=== PATIENT | female | born 1950 | race Caucasian/White ===

== ENCOUNTER 2022-11-04 11:01 | Emergency (ER) | payer MEDICARE, SELFPAY ==
[2022-11-04 11:05] VITALS: BP 132/75; PULSE 89; RESP 18; TEMP 35.9; O2SAT 100; BMI 20.7
--- NOTE | 2022-11-04 11:07 | ED.FEMALEGU ---
HPI - Female Genitourinary General Chief complaint: Urogenital-Female <BARBRA Go Last Filed: 11/04/22 11:08> Stated complaint: UTI <BARBRA Go Last Filed: 11/04/22 11:08> Time Seen by Provider: 11/04/22 11:43 <BARBRA Go Last Filed: 11/04/22 11:08> Source: patient <BARBRA Balderrama Last Filed: 11/04/22 12:09> Mode of arrival: ambulatory <BARBRA Balderrama Last Filed: 11/04/22 12:09> Limitations: no limitations <BARBRA Balderrama Last Filed: 11/04/22 12:09> History of Present Illness HPI Narrative: 72-year-old female with a past medical history of recurrent UTIs her last UTI was probably 1 year ago and before that 10 years ago who is presenting with suprapubic abdominal discomfort with associated dysuria, urinary frequency / urgency over the past 2 days worse today. Denies any fevers, chills, dizziness, headaches, neck pain/ stiffness, trouble swallowing or breathing, chest pain or shortness of breath, radiation of the abdominal pain, flank pain, back pain, Hematuria, diarrhea constipation, abnormal vaginal discharge, black or bloody stools, rashes to the vaginal area, thoughts of STDs or any other symptoms complaints or concerns at this time. <BARBRA Balderrama Last Filed: 11/04/22 12:09> MD elicited complaint: dysuria and UTI <BARBRA Balderrama Last Filed: 11/04/22 12:09> Pertinent past history: recurrent UTIs <BARBRA Balderrama Last Filed: 11/04/22 12:09> Onset (ago): day(s) (2) <BARBRA Balderrama Last Filed: 11/04/22 12:09> Location of symptoms: suprapubic <BARBRA Balderrama Last Filed: 11/04/22 12:09> Severity: mild <BARBRA Balderrama Last Filed: 11/04/22 12:09> Female Urogenital Radiation: Non-Radiating <BARBRA Balderrama Last Filed: 11/04/22 12:09> Quality of pain: cramping and aching <BARBRA Balderrama Last Filed: 11/04/22 12:09> Consistency: intermittent <BARBRA Balderrama Last Filed: 11/04/22 12:09> Vaginal discharge: none <BARBRA Balderrama Last Filed: 11/04/22 12:09> Vaginal bleeding: none <BARBRA Balderrama Last Filed: 11/04/22 12:09> Urinary symptoms: Dysuria, Urgency, Frequency and Difficulty Urinating <BARBRA Balderrama Last Filed: 11/04/22 12:09> Exacerbating factors: urination <BARBRA Balderrama Last Filed: 11/04/22 12:09> Relieving factors: none <BARBRA Balderrama Last Filed: 11/04/22 12:09> Associated symptoms: denies other symptoms <BARBRA Balderrama Last Filed: 11/04/22 12:09> Treatment prior to arrival: none <BARBRA Balderrama Last Filed: 11/04/22 12:09> Sexual activity: No <BARBRA Balderrama Last Filed: 11/04/22 12:09> Patient : No <BARBRA Balderrama Last Filed: 11/04/22 12:09> Related Data Home medications: Previous Rx's Medication Instructions Recorded cefuroxime axetil 250 mg tablet 500 mg PO BID 7 days #28 tabs 11/04/22 phenazopyridine 100 mg tablet 100 mg PO TID PRN pain 6 doses #6 11/04/22 (Pyridium) tabs <BARBRA Go Last Filed: 11/04/22 11:08> Allergies/Adverse reactions: Allergies Allergy/AdvReac Type Severity Reaction Status Date / Time No Known Allergies Allergy Verified 11/04/22 11:08 <BARBRA Go Last Filed: 11/04/22 11:08> Review of Systems Review of Systems: Constitutional : No Weight loss, No Fever, No Chills, No Night Sweats, No Fatigue, No Malaise ENT/Mouth : No Hearing loss, No Ear Pain, No Nasal Congestion, No Sinus Pain, No Hoarseness, No sore throat, No Rhinorrhea, No Swallowing Difficulty Eyes: No Eye Pain, No Swelling, No Redness, No Foreign Body, No Discharge, No Vision Changes Cardiovascular : No Chest Pain, No SOB, No Dyspnea on Exertion, No Orthopnea, No Edema, No Palpitations Respiratory : No Cough, No Sputum, No Wheezing, No Smoke Exposure, No Dyspnea Gastrointestinal : No Nausea, No Vomiting, No Diarrhea, No Constipation, + suprapubic abdominal Pain, No Hematochezia, No Melena Genitourinary : + dysuria with increased urinary frequency/ urgency, no irregular bleeding, No Hematuria, No Urinary Incontinence, No Flank Pain, No Urinary Flow Changes, No Hesitancy Musculoskeletal : No joint pain, No Myalgias, No Joint Swelling Skin : No Skin Lesions, No rash Neuro : No Weakness, No Numbness, No Paresthesias, No Loss of Consciousness, No Dizziness, No Headache Psych : No Anxiety/Panic, No Depression, No SI/HI/AH/VH, No Social Issues, Heme/Lymph: No Bruising, No Bleeding,No Lymphadenopathy Endocrine : No Polyuria, No Polydipsia, No Temperature Intolerance <BARBRA Balderrama - Last Filed: 11/04/22 12:09> Yes all other systems are reviewed and are negative <BARBRA Balderrama - Last Filed: 11/04/22 12:09> [facility] Past Medical History Attestation statement: The following information was validated with the patient. <BARBRA Balderrama - Last Filed: 11/04/22 12:09> Source: old records reviewed and nursing notes reviewed <BARBRA Balderrama - Last Filed: 11/04/22 12:09> Social History Social History: Social History Smoked in Last 30 Days: No Advance Directives: Yes Advance Directives Information Provided: No Advance Directives on File: No Patient : No <BARBRA Go - Last Filed: 11/04/22 11:08> Physical Exam Vital Signs: Vital Signs: Last Vital Signs Temp 96.6 F L 11/04/22 11:05 Pulse 89 11/04/22 11:05 Resp 18 11/04/22 11:05 BP 132/75 11/04/22 11:05 Pulse Ox 100 11/04/22 11:05 O2 Del Method 11/04/22 11:05 BMI result Body Mass Index 20.7 <BARBRA Go - Last Filed: 11/04/22 11:08> Vital Signs: Last Vital Signs Temp 96.6 F L 11/04/22 11:05 Pulse 89 11/04/22 11:05 Resp 18 11/04/22 11:05 BP 132/75 11/04/22 11:05 Pulse Ox 100 11/04/22 11:05 O2 Del Method 11/04/22 11:05 BMI result Body Mass Index 20.7 vital signs have been reviewed as normal and appeared to be correct. Blood pressure normal. Heart rate normal. Respiration rate normal. Temperature normal. Oxygen saturation normal. <BARBRA Balderrama - Last Filed: 11/04/22 12:09> Appearance: Alert. Oriented X3. No acute distress. Head: Normal external exam. Normocephalic. Eyes: PERRLA. EOMI. Conjunctiva and sclera normal. Eyelids normal. ENT: Pharynx normal. Uvula midline. Moist mucous membranes. No trismus noted. No drooling noted. No muffled voice noted. Neck: Normal inspection. Neck supple. FROM. No adenopathy. No meningeal signs. CVS: Normal heart rate and rhythm. Heart sound normal. No murmurs noted. Pulses normal throughout. Respiratory: No respiratory distress. Painless inspiration. Breath sounds normal. No wheezes/rales/rhonchi noted. Chest nontender. No accessory muscle usage noted or decreased air movement noted. Abdomen: Soft and nontender. Nondistended. No guarding. No rigidity. Bowel sounds normal in all 4 quadrants. No distention noted. No organomegaly noted. No visible injury noted. No rebound tenderness. Negative Rovsing sign. Negative obturator's sign. Negative psoas sign. Negative Anders sign. Back: No CVA tenderness. Full range of motion noted. Skin: Skin warm and dry. Normal skin color. Normal skin turgor. No rashes/lesions/lacerations noted. Extremities: Extremities exhibit normal range of motion. Extremities nontender. Neuro: Oriented X 3. No motor deficit. No sensory deficit. Reflexes normal. Normal steady gait. CN's II-XII intact bilaterally? <BARBRA Balderrama - Last Filed: 11/04/22 12:09> Course Course Course Narrative: RME - 72 yo female with history of UTIs in the past presents for evaluation of UTI symptoms a couple days ago. No fever, chills, N/V/D, abdominal pain or back pain. Nontoxic appearing, afebrile in triage. UA ordered. <BARBRA Go - Last Filed: 11/04/22 11:08> Reevaluation(s) Reevaluation #1: UA positive for UTI. On exam patient does not have any abdominal tenderness, flank pain or CVA tenderness noted. She denies any rashes or lesions to the vaginal area no thoughts of STDs. Therefore no additional labs or imaging indicated. Not consistent with pyelonephritis/ kidney stones/ appendicitis/ diverticulitis or any intra-abdominal acute processes. Will DC home antibiotics and instructions return if any new or worsening symptoms to follow up with primary care provider. Patient understands agrees with this plan. <BARBRA Balderrama - Last Filed: 11/04/22 12:09> Time: 12:06 <BARBRA Balderrama - Last Filed: 11/04/22 12:09> Medical Decision Making Lab Data MDM Lab Attestation statement: I reviewed the patient's lab results. <BARBRA Balderrama - Last Filed: 11/04/22 12:09> Labs: Lab Results 11/04/22 Range/Units 11:36 Urine Color Yellow Urine Appearance Cloudy Urine pH 6.5 (5.0-9.0) Ur Specific [place] 1.020 (1.005-1.025) Urine Protein 30 (1+) H (Neg-Trace) mg/dL Urine Glucose (UA) Negative (Negative) mg/dL Urine Ketones Trace (Negative) mg/dL Urine Blood Large (3+) H (Negative) Urine Nitrite Negative (Negative) Ur Leukocyte Esterase Large (3+) H (Negative) Urine RBC >20 H (0-2) /HPF Urine WBC >50 H (0-5) /HPF Ur Squamous Epith Cells 0-2 (0-2) /HPF Urine Bacteria 2+ (None Seen) Hyaline Casts 3-5 (0-2) /LPF <BARBRA Go - Last Filed: 11/04/22 11:08> Lab Results 11/04/22 Range/Units 11:36 Urine Color Yellow Urine Appearance Cloudy Urine pH 6.5 (5.0-9.0) Ur Specific [place] 1.020 (1.005-1.025) Urine Protein 30 (1+) H (Neg-Trace) mg/dL Urine Glucose (UA) Negative (Negative) mg/dL Urine Ketones Trace (Negative) mg/dL Urine Blood Large (3+) H (Negative) Urine Nitrite Negative (Negative) Ur Leukocyte Esterase Large (3+) H (Negative) Urine RBC >20 H (0-2) /HPF Urine WBC >50 H (0-5) /HPF Ur Squamous Epith Cells 0-2 (0-2) /HPF Urine Bacteria 2+ (None Seen) Hyaline Casts 3-5 (0-2) /LPF <BARBRA Balderrama - Last Filed: 11/04/22 12:09> Discharge Plan Discharge Clinical Impression: Urinary tract infection <BARBRA Go - Last Filed: 11/04/22 11:08> Patient Disposition: Home, Self-Care <BARBRA Go Last Filed: 11/04/22 11:08> Instructions: Urinary Tract Infection in Women (ED) <BARBRA Go - Last Filed: 11/04/22 11:08> Prescriptions: New cefuroxime axetil 250 mg tablet 500 mg PO BID 7 Days Qty: 28 0RF phenazopyridine [Pyridium] 100 mg tablet 100 mg PO TID PRN (Reason: pain) Qty: 6 0RF <BARBRA Go - Last Filed: 11/04/22 11:08> Referrals: Physician,Nonstaff [Primary Care Provider] - 2 days ( Your PCP as needed) <BARBRA Go Last Filed: 11/04/22 11:08>
[2022-11-04 11:50] LABS: Appearance Urine Cloudy; Color Urine Yellow; Glucose Urine UA Negative (Negative); Leukocyte Esterase Urine Large (3+) (Negative); Nitrite Urine Negative (Negative); PH 6.5 (5.0-9.0); UMIC TRIGGER UACC YES; Urine Blood Large (3+) (Negative); Urine Ketones Trace mg/dL (Negative); Urine Protein 30 (1+) mg/dL (Neg-Trace)
[2022-11-04 11:55] LABS: Bacteria Urine 2+ (None Seen); RBC Urine >20 /HPF (0-2); Squamous Epithelial Cell Urine 0-2 /HPF (0-2); UACC Culture Trigger YES; WBC Urine >50 /HPF (0-5)
== END 2022-11-04 12:26 | disposition home or self-care (01) ==
PROVIDERS: Physician Assistant; Emergency Provider Emergency Medicine
DX: N39.0 Urinary tract infection, site not specified (principal); R30.0 Dysuria; R35.0 Frequency of micturition; Z79.899 Other long term (current) drug therapy
CPT/HCPCS: 81001; 87086; 99283; 99284

== ENCOUNTER 2023-03-17 10:06 | Emergency (ER) | payer MEDICARE, SELFPAY ==
--- NOTE | ~2023-03-17 | XR_ITS ---
EXAMINATION: XR CHEST CLINICAL INFORMATION: Cough COMPARISON: None available. TECHNIQUE: 2 views of the chest were obtained. FINDINGS: The cardiomediastinal silhouette is within normal limits. The lungs are well expanded. There is no focal consolidation, edema, or effusion. No pneumothorax. No acute osseous abnormality. Thoracic spine degeneration. XR/XR chest 2V IMPRESSION: No evidence of acute cardiopulmonary process.
[2023-03-17 10:25] VITALS: BP 135/64; PULSE 77; RESP 18; TEMP 36.2; O2SAT 98; BMI 21.9
[2023-03-17 11:09] LABS: IDNOW Serial# 6674DD1D; Strep A Nucleic Acid Negative (Negative)
[2023-03-17 11:27] LABS: Influenza A PCR NEGATIVE (Negative); Influenza B PCR NEGATIVE (Negative); Resp Syncy Virus RNA Qual PCR NEGATIVE (Negative); SARS COV2 PCR INHOUSE NEGATIVE (Negative)
--- NOTE | 2023-03-17 11:50 | PC.NURSE ---
Patient presents with a sore throat and cough for a few days. Patient states hx of acid reflux and she hasn't been taking full dose of medication recently and has been noticing more of a cough at night. Patient alert and orient and is otherwise well appearing at this time.
--- NOTE | 2023-03-17 12:38 | ED.GENADULT ---
HPI - General Adult General Chief complaint: General Medical Stated complaint: Cough/Sore throat Time Seen by Provider: 03/17/23 12:01 Source: patient, RN notes reviewed and old records reviewed Mode of arrival: ambulatory Limitations: no limitations History of Present Illness HPI narrative: 72 year old female with history of GERD, bronchitis, and tobacco use presenting to the ED complaining of a dry cough x3 wks followed by sore throat x1 wk and associated right ear pain. Reports pain with swallowing and reports white dots on the back of her throat. No difficulty eating/ drinking. Denies sick contacts. Denies difficulty swallowing, sputum production, nasal congestion, sinus pressure, SOB, chest pain, hearing changes/ loss, fever, chills, N/V. Onset (ago): week(s) Related Data Previous Rx's Medication Instructions Recorded cefuroxime axetil 250 mg tablet 500 mg PO BID 7 days #28 tabs 11/04/22 phenazopyridine 100 mg tablet 100 mg PO TID PRN pain 6 doses #6 11/04/22 (Pyridium) tabs amoxicillin 875 mg-potassium 1 tab PO BID 7 days #14 tabs 03/17/23 clavulanate 125 mg tablet benzonatate 100 mg capsule 100 mg PO TID PRN cough #14 caps 03/17/23 prednisone 20 mg tablet 40 mg PO DAILY 5 days #10 tabs 03/17/23 Allergies Allergy/AdvReac Type Severity Reaction Status Date / Time No Known Allergies Allergy Verified 03/17/23 10:35 Review of Systems Review of Systems: Constitutional: No Fever, No Chills ENT/Mouth: + Ear Pain, No Nasal Congestion, No Sinus Pain, No Hoarseness, + sore throat, No Rhinorrhea, No Swallowing Difficulty Cardiovascular: No Chest Pain, No SOB Respiratory: + Cough, No Sputum, No Wheezing Gastrointestinal: No Nausea, No Vomiting, No Diarrhea, No Constipation, No Abdominal pain Genitourinary: No Dysuria, No Urinary Frequency, No Hematuria Musculoskeletal: No joint pain, No Myalgias, No Joint Swelling Skin: No Skin Lesions, No rash Yes all other systems are reviewed and are negative Constitutional: Constitutional: Reports as per [facility] Past Medical History Attestation statement: The following information was validated with the patient. Source: old records reviewed Social History Social History Advance Directives: No Advance Directives Information Provided: Yes Physical Exam ED Vital Signs: Vital Signs - 24 hr 03/17/23 10:25 Temperature 97.1 F Pulse Rate 77 Respiratory Rate 18 Blood Pressure 135/64 Pulse Oximetry 98 Oxygen Delivery Method Room Air BMI result Body Mass Index 21.9 VSS, afebrile Const General: cooperative, healthy appearing, no acute distress, alert and awake Orientation/consciousness: patient oriented x3 Limitations: no limitations HENMT Other: + bilateral tonsilar exudates. No erythema or edema. Uvula midline. Head: Yes normal to inspection and Yes atraumatic Ears: hearing grossly normal bilaterally, external ears normal, TM's normal bilaterally, EAC's normal, mastoids normal and no periauricular adenopathy General nose exam: Normal external nose present Face and sinus: Yes normal facial exam Mouth: Normal oral and palatal mucosa present, oropharynx abnormals and moist mucous membranes Throat: Yes uvula midline, No uvula laterally displaced and No uvular edema Eyes General: appearance normal, both eyes and all related structures EOM: EOMs intact bilaterally Neck Neck: Yes normal visual inspection, Yes no lymphadenopathy and Yes no meningeal signs Resp Effort & Inspection: normal respiratory effort, able to speak in complete sentences and no respiratory distress Auscultation: clear to auscultation bilaterally, no crackles, no rales, no rhonchi and no wheezes Cardio Rate: regular rate Heart sounds: S1 normal heart sound present and S2 normal heart sound present GI Inspection: Yes normal to inspection Palpation (GI): Soft to palpation, nontender, no guarding and not rigid Skin Rashes: no rashes Wounds: no wounds Neuro General: patient oriented x3, tone normal and no meningeal signs Gait exam (Neuro): Normal gait present Extrem General: Yes normal to inspection Course Course Course Narrative: --1250: serology negative for influenza, RSV, strep, and COVID. > CXR ordered. 1403--XR chest 2V IMPRESSION: No evidence of acute cardiopulmonary process. Results discussed with patient including worrisome signs and symptoms and strict return precautions, and when to return to the emergency department. They verbalized understanding and feel safe for discharge at this time. Medical Decision Making Medical Decision Making [facility] Narrative: 72 year old female with history of GERD, bronchitis, and tobacco use presenting to the ED complaining of a dry cough x3 wks followed by sore throat x1 wk and associated right ear pain. Reports pain with swallowing and reports seeing white dots on the back of her throat. VSS, physical exam significant for bilateral tonsilar exudates, uvula midline. Concern for viral pharyngitis, strep throat, bronchitis vs COVID, influenza. Low clinical suspicion for DATA KEYER, ACS, PE or mastoiditis Plan: serology, CXR Please refer to course for remaining clinical decision making, interpretation of labs/imaging results, and discussions with consultants and/or family members. Differential Diagnosis Differential Diagnoses: The differential diagnosis associated with the presentation includes As above Lab Data MDM Lab Attestation statement: I reviewed the patient's lab results. Labs: Lab Results 03/17/23 03/17/23 Range/Units 10:33 10:33 Influenza Type A (PCR) NEGATIVE (Negative) Influenza Type B (PCR) NEGATIVE (Negative) RSV RNA Qual (PCR) NEGATIVE (Negative) SARS-CoV-2 RNA (RT-PCR) NEGATIVE (Negative) S. pyogenes GrpA JOSELINE Negative (Negative) Independent Interpretation I performed an independent interpretation of an: Plain X-Ray Radiology Impression Discussion of test interpretation with radiology: I have reviewed the radiologist's reading. External Record Review External record reviewed: Inpatient record, Office record, Outpatient record, Prior outpatient labs, Prior outpatient radiology, Primary care record and Outside ED record Tests considered The following testing was considered but not selected: As above Discharge Plan Discharge Clinical Impression: Pharyngitis, Bronchitis Patient Disposition: Home, Self-Care Instructions: Pharyngitis (ED), Acute Bronchitis (ED) Additional Instructions: You tested negative for COVID, flu, RSV, and strep throat, however clinically appears to have strep Augmentin is an antibiotic please take as prescribed Your x-rays unremarkable however you have bronchitis, prednisone as a steroid please take as prescribed Please stay hydrated, continue home medications, follow up with her doctor Symptoms persist or worsen return to the ED Prescriptions: New prednisone 20 mg tablet 40 mg PO DAILY 5 Days Qty: 10 0RF amoxicillin-pot clavulanate 875-125 mg tablet 1 tab PO BID 7 Days Qty: 14 0RF benzonatate 100 mg capsule 100 mg PO TID PRN (Reason: cough) Qty: 14 0RF No Action cefuroxime axetil 250 mg tablet 500 mg PO BID 7 Days Qty: 28 0RF phenazopyridine [Pyridium] 100 mg tablet 100 mg PO TID PRN (Reason: pain) Qty: 6 0RF Referrals: Physician,Unknown J [Primary Care Provider] - 5 days Interventions: ED Discharge Assessment Last Done: 03/17/23 14:27 Discharge Date/Time: 03/17/23 14:28
== END 2023-03-17 14:28 | disposition home or self-care (01) ==
PROVIDERS: Emergency Provider Emergency Medicine
DX: J02.9 Acute pharyngitis, unspecified (principal); J40 Bronchitis, not specified as acute or chronic; Z20.822 Contact with and (suspected) exposure to COVID-19; Z20.828 Contact with and (suspected) exposure to other viral communicable diseases
CPT/HCPCS: 0241U; 71046; 87651; 99282; 99283

== ENCOUNTER 2023-04-06 08:49 | Emergency (ER) | payer MEDICARE, SELFPAY ==
[2023-04-06 09:10] VITALS: BP 135/81; PULSE 84; TEMP 35.6; O2SAT 98; BMI 21.9
[2023-04-06 10:03] LABS: IDNOW Serial# 08D9AD1C; Strep A Nucleic Acid Negative (Negative)
--- NOTE | 2023-04-06 10:03 | ED.GENADULT ---
HPI - General Adult General Chief complaint: General Medical Stated complaint: Sore throat Time Seen by Provider: 04/06/23 10:03 Source: patient Mode of arrival: ambulatory Limitations: no limitations History of Present Illness HPI narrative: Patient is a 72 year old assigned female at with no reported medical history presenting to the emergency department today with a sore throat. Patient states that she has been battling this sore throat intermittently since February. Patient states that she sees white spots in her throat and it fluctuates in intensity. Patient denies any dizziness, lightheadedness, abdominal pain, nausea, vomiting, fever, chills, blurry vision, double vision, loss of vision, chest pain, difficulty breathing, shortness of breath, back pain, night sweats, pain with urination, increased urinary frequency, increased urinary urgency, blood in her urine or stool, syncope or a near syncopal episode, recent trauma or falls, bowel incontinence, bladder incontinence, bowel retention, bladder retention, or any other complaints at this time. Onset (ago): week(s) (3) Radiation: non-radiation Severity: mild Severity scale (1-10): 3 Quality: aching Pain Consistency: intermittent Relieving factors: none Exacerbating factors: none Associated symptoms: denies other symptoms Treatments prior to arrival: none Related Data Previous Rx's Medication Instructions Recorded cefuroxime axetil 250 mg tablet 500 mg PO BID 7 days #28 tabs 11/04/22 phenazopyridine 100 mg tablet 100 mg PO TID PRN pain 6 doses #6 11/04/22 (Pyridium) tabs amoxicillin 875 mg-potassium 1 tab PO BID 7 days #14 tabs 03/17/23 clavulanate 125 mg tablet benzonatate 100 mg capsule 100 mg PO TID PRN cough #14 caps 03/17/23 prednisone 20 mg tablet 40 mg PO DAILY 5 days #10 tabs 03/17/23 penicillin V potassium 500 mg 500 mg PO BID 10 days #20 tabs 04/06/23 tablet Allergies Allergy/AdvReac Type Severity Reaction Status Date / Time No Known Allergies Allergy Verified 03/17/23 10:35 Review of Systems Constitutional: Constitutional: Reports no additional constitutional complaints, Denies chills, Denies fever(s) and Denies night sweats Eyes: Eyes: Reports no additional eye complaints, Denies blurry vision, Denies change in vision, Denies diplopia, Denies eye discharge, Denies loss of vision and Denies eye pain ENT: Denies dizziness and Reports sore throat Cardiovascular: Cardiovascular: Reports no additional cardiovascular complaints, Denies chest pain, Denies lightheadedness, Denies Loss of Consciousness and Denies dyspnea Respiratory: Respiratory: Reports no additional respiratory complaints and Denies dyspnea Gastrointestinal: Gastrointestinal: Reports no additional gastrointestinal complaints, Denies abdominal pain, Denies melena, Denies hematochezia, Denies change in bowel habits and Denies change in stool character Genitourinary: Genitourinary: Denies hematuria, Denies urinary frequency, Denies dysuria, Denies urinary incontinence, Denies urinary hesitancy and Denies urinary urgency Musculoskeletal: Musculoskeletal: Reports no additional musculoskeletal complaints, Denies numbness and Denies tingling Neurologic: Denies dizziness, Denies loss of vision, Denies numbness and Denies tingling Psychiatric: Psychiatric: Reports no additional psychiatric complaints Endocrine: Endocrine: Reports no additional endocrine complaints Hematologic/Lymphatic: Hematologic/Lymphatic: Reports no additional hematologic/lymphatic complaints Allergic/Immunologic: Allergic/Immunologic: Reports no additional allergic/immunologic complaints [facility] Past Medical History Attestation statement: The following information was validated with the patient. Source: old records reviewed and nursing notes reviewed Social History Social History Advance Directives: No Advance Directives Information Provided: Yes Physical Exam ED Vital Signs: Vital Signs - 24 hr 04/06/23 09:10 Temperature 96.1 F L Pulse Rate 84 Blood Pressure 135/81 Pulse Oximetry 98 Oxygen Delivery Method Room Air BMI result Body Mass Index 21.9 Const General: cooperative, no acute distress, alert and awake Nutritional Appearance: well nourished Orientation/consciousness: patient oriented x3 Limitations: no limitations HENMT Head: Yes normal to inspection and Yes atraumatic Ears: hearing grossly normal bilaterally and external ears normal General nose exam: Normal external nose present, no nasal discharge noted and no epistaxis Face and sinus: Yes normal facial exam, No abrasion and No laceration Mouth: Normal oral and palatal mucosa present, no drooling and no muffled voice Throat: Yes posterior oropharynx abnormal (erythema and exudates) Eyes General: appearance normal, both eyes and all related structures Periorbital: periorbital findings normal Eyelids: Yes eyelids normal Conjunctivae: conjunctivae normal Pupils: Equal, round and reactive pupils present EOM: EOMs intact bilaterally Neck Neck: Yes normal visual inspection, Yes full ROM and Yes no lymphadenopathy Chest Chest palpation & inspection: normal inspection of the chest Resp Effort & Inspection: normal respiratory effort and able to speak in complete sentences GI Inspection: Yes normal to inspection Neuro General: patient oriented x3 and moves all extremities Cranial nerves: Yes Equal, round and reactive pupils present Cognition (Neuro): normal cognition Motor exam (neuro): 5/5 motor strength present throughout Sensory Exam: Normal double simultaneous stimulation for sensation Coordination: [id number] test normal Extrem General: Yes normal to inspection, Yes full ROM and Yes capillary refill normal Psych Appearance: grossly normal Mental Status: mental status grossly normal Affect: normal affect Attitude: cooperative Thought process: Normal thought process present Thought content: Normal thought content present Insight: Good insight present (Psych) Medical Decision Making Medical Decision Making MDM Narrative: Patient is a 72 year old assigned female at with no reported medical history presenting to the emergency department today with a sore throat. Patient's physical exam showed a posterior oropharynx with erythema and exudates. Patient's COVID-19, influenza, and strep swabs were all negative. I explained my physical exam findings as well as all test results to the patient. I answered all questions asked by the patient. I stressed the importance of the patient taking her medication as prescribed. I stressed the importance of the patient following up with her primary care provider and given the length of the complaint and it's intermittent frequency, an ENT specialist. I stressed the importance of the patient returning to the emergency department immediately if her symptoms were to worsen or if she were to develop any dizziness, shortness of breath, difficulty breathing, chest pain, blurry vision, loss of vision, nausea, vomiting, abdominal pain, fever, chills, back pain, or any other complaints. Patient verbalized agreement and understanding with this treatment plan and discharge. Differential Diagnosis Differential Diagnoses: The differential diagnosis associated with the presentation includes pharyngitis strep pharyngitis allergic pharyngitis viral illness chronic sore throat influenza COVID-19 Lab Data [facility] Lab Attestation statement: I reviewed the patient's lab results. My interpretation of these studies and their corresponding values is that they are grossly normal. Labs: Lab Results 04/06/23 04/06/23 04/06/23 Range/Units 09:46 09:46 09:46 COVID-19 (SHEREEN) Negative (Negative) COVID-19 Clin Com See Note Influenza Type A (JOSELINE) Negative (Negative) Influenza Type B (JOSELINE) Negative (Negative) Influenza A & B Note See Note S. pyogenes GrpA JOSELINE Negative (Negative) Prescription Management I considered prescription management with: Antibiotic (patient prescribed antibiotics) Discharge Plan Discharge Clinical Impression: Pharyngitis Patient Disposition: Home, Self-Care Instructions: Pharyngitis (ED) Additional Instructions: Follow up with your primary care provider and an ENT. Return to the emergency department immediately if your symptoms worsen or if you develop any dizziness, shortness of breath, difficulty breathing, chest pain, blurry vision, loss of vision, nausea, vomiting, abdominal pain, fever, chills, back pain, or any other complaints. Prescriptions: New penicillin V potassium 500 mg tablet 500 mg PO BID 10 Days Qty: 20 0RF No Action cefuroxime axetil 250 mg tablet 500 mg PO BID 7 Days Qty: 28 0RF phenazopyridine [Pyridium] 100 mg tablet 100 mg PO TID PRN (Reason: pain) Qty: 6 0RF prednisone 20 mg tablet 40 mg PO DAILY 5 Days Qty: 10 0RF amoxicillin-pot clavulanate 875-125 mg tablet 1 tab PO BID 7 Days Qty: 14 0RF benzonatate 100 mg capsule 100 mg PO TID PRN (Reason: cough) Qty: 14 0RF [place] [facility] [place]] (Call to establish and follow up with a primary care provider. If you already have a primary care provider, please follow up with them.) [facility] [place] Group[place] (Call to establish and follow up with a primary care provider. If you already have a primary care provider, please follow up with them.) [facility] [place] [place]Provider Group] (Call to establish and follow up with a primary care provider. If you already have a primary care provider, please follow up with them.) Jens Elena [Physician] - (Call to establish and follow up with an ENT specialist.) Interventions: ED Discharge Assessment Last Done: 04/06/23 10:55 Discharge Date/Time: 04/06/23 10:45 Print Language: Bulgarian
[2023-04-06 10:07] LABS: IDNOW Serial# BCCEAD1C
[2023-04-06 10:08] LABS: COVID-19 Test Negative (Negative); IDNOW Serial# 9DB6401D; Influenza A Negative (Negative); Influenza B2 Negative (Negative)
== END 2023-04-06 10:45 | disposition home or self-care (01) ==
PROVIDERS: Physician Assistant Medical; Emergency Provider Emergency Medicine
DX: J02.9 Acute pharyngitis, unspecified (principal); Z20.822 Contact with and (suspected) exposure to COVID-19
CPT/HCPCS: 87502; 87635; 87651; 99283

== ENCOUNTER 2023-04-22 12:02 | Emergency (ER) | payer MEDICARE, SELFPAY ==
--- NOTE | ~2023-04-22 | CT_ITS ---
EXAMINATION: CT SOFT TISSUE NECK WITH CONTRAST CLINICAL INFORMATION: Dysphagia, throat pain COMPARISON: None. TECHNIQUE: Following the administration of 60 mL of Omnipaque 350 intravenous contrast, helical imaging was performed in the axial plane with generation of coronal and sagittal reformatted images. This CT examination was performed using dose optimization techniques as appropriate, variously including the following: *Automated exposure control. *Adjustment of mA and/or kV according to patient size (this includes techniques or standardized protocols for targeted exams where dose is matched to indication/reason for exam; i.e. extremities or head). *Use of iterative reconstruction technique. DLP: 456 mGy-cm. FINDINGS: Nasopharynx/skull base: The fat planes of the skull base and soft tissues of the nasopharynx are unremarkable. The paranasal sinuses are well aerated. Small right mastoid fluid. The temporomandibular joints are normal. Suprahyoid neck: The oropharynx, oral cavity, and bilateral salivary gland tissues are unremarkable. Infrahyoid neck: The hypopharynx and larynx are unremarkable. No aerodigestive tract mass. Thyroid: The thyroid gland is normal. Lymph nodes: There is no cervical chain lymphadenopathy. Lung apices: Mild biapical pulmonary scarring. Vascular structures: There is calcified atherosclerotic disease involving the bilateral carotid bifurcations, right greater than left without evidence of high-grade stenosis. Osseous structures: The osseous structures are intact without suspicious focal lesion. Moderate multilevel cervical spondylosis. Evaluation of the central spinal canal patency is limited in the absence of intrathecal contrast with suggestion of moderate to severe stenosis at C5-C6 related to posterior disc osteophyte complex. Fusion of the right C2-C3 facet joint. Other: The imaged portions of the brain parenchyma are unremarkable. CT/CT soft tissue neck w IV con IMPRESSION: No acute soft tissue abnormality in the neck.
[2023-04-22 12:28] VITALS: BP 133/80; PULSE 77; RESP 16; TEMP 35.9; O2SAT 95; BMI 22.1
--- NOTE | 2023-04-22 12:28 | ED.GENADULT ---
HPI - General Adult General Chief complaint: General Medical Stated complaint: Throat issues -third visit Time Seen by Provider: 04/22/23 13:51 Source: patient and old records reviewed Mode of arrival: ambulatory Limitations: no limitations History of Present Illness HPI narrative: 72-year-old female with no significant medical history, former smoker, presents to the ER for evaluation of throat pain, foreign body sensation. She states she has been here twice in the past for sore throat and throat pain. Her symptoms have been progressing since February. She was treated with 2 courses of antibiotics although her cultures were negative. She states her symptoms have been progressing. She states she now feels like something is stuck in her throat. She has choked in vomited a couple of times when lying flat. She has been able to tolerate liquids and yogurt best. She has an appointment with ENT but not until May. MD complaint: throat pain, FB sensation Onset (ago): month(s) Location: mouth and neck Radiation: other (ears) Severity: moderate Pain Consistency: intermittent Relieving factors: none Exacerbating factors: eating Associated symptoms: nausea/vomiting Treatments prior to arrival: none Related Data Previous Rx's Medication Instructions Recorded cefuroxime axetil 250 mg tablet 500 mg PO BID 7 days #28 tabs 11/04/22 phenazopyridine 100 mg tablet 100 mg PO TID PRN pain 6 doses #6 11/04/22 (Pyridium) tabs amoxicillin 875 mg-potassium 1 tab PO BID 7 days #14 tabs 03/17/23 clavulanate 125 mg tablet benzonatate 100 mg capsule 100 mg PO TID PRN cough #14 caps 03/17/23 prednisone 20 mg tablet 40 mg PO DAILY 5 days #10 tabs 03/17/23 penicillin V potassium 500 mg 500 mg PO BID 10 days #20 tabs 04/06/23 tablet Allergies Allergy/AdvReac Type Severity Reaction Status Date / Time No Known Allergies Allergy Verified 04/22/23 12:28 Review of Systems Review of Systems: Yes all other systems are reviewed and are negative [facility] Social History Social History Advance Directives: Yes Advance Directives Information Provided: No Advance Directives on File: No Physical Exam ED Vital Signs: Vital Signs - 24 hr 04/22/23 12:28 04/22/23 13:56 04/22/23 16:10 Temperature 96.6 F L 98.2 F Pulse Rate 77 66 64 Respiratory Rate 16 16 18 Blood Pressure 133/80 141/75 H 142/95 H Pulse Oximetry 95 98 98 Oxygen Delivery Method Room Air Room Air Room Air BMI result Body Mass Index 22.1 Appearance: Alert. Oriented X3. No acute distress. Head: normocephalic, atraumatic. Eyes: Pupils equal, round and reactive to light. ENT: Pharynx normal. No tonsillar swelling or exudate. Small white cyst like lesions of the posterior oropharynx. normal voice. handling secretions normally Neck: Normal inspection. Neck supple. No apprecaited swelling or palpable lymphadenpathy. Tender below the level of the thyroid, no skin changes. CVS: Normal heart rate and rhythm. Pulses normal. Respiratory: No respiratory distress. Breath sounds normal. Abdomen: Soft and nontender. +BS x4 Skin: Skin warm and dry. Normal skin color. Normal skin turgor. No rashes. Extremities: No lower extremity edema. No joint swelling. Neuro/psych: Oriented X 3. No motor deficit. No sensory deficit. CN II-XII intact. Normal speech and cognition. Course Course Course Narrative: This is an RME: Additional HPI, ROS, PE not included below will be deferred to primary provider. Patient is a 72-year-old female presenting with ongoing sore throat, now complaining of foreign body sensation to throat for past several days. Patient states she made an appointment with ENT but the appointment is not until 05/28. States she completed full course of PCN VK as prescribed here on 04/06. Patient is speaking easily in full sentences. Denies fevers. Reports has only been able to eat yogurts. States when I swallow it feels like something is in there. Reevaluation(s) Reevaluation #1: Patient's CT unremarkable. Patient does have follow-up with ear nose and throat, I did give her Dr. Ag information , advised her to return with new or worsening symptoms. Did encourage a soft diet, liquids. Patient tolerating p.o. here in the department, liquids and yogurt. Educated patient on diagnosis and treatment plan, answered all question, patient verbalizes understanding. At this time patient will be discharged home, advised to return with new or worsening symptoms. Educated on worrisome signs and symptoms and when to return. At this time I feel comfortable discharge home. Time: 16:52 Medications Administered Discontinued Medications Generic Name Dose Route Start Last Admin Trade Name Ariel PRN Reason Stop Dose Admin Iohexol 60 ml 04/22/23 15:34 04/22/23 15:34 Iohexol 350 Mg/Ml 100 Ml Infus..Btl IV 04/22/23 15:35 60 ml ONCE ONE Administration Medical Decision Making Medical Decision Making [facility] Narrative: 72-year-old female presenting to the ER for evaluation of 2 and half months of progressive sore throat and now dysphagia. Seen here twice for similar issues. Completed 2 courses of antibiotics with no improvement. Does not seem to be infectious. She has no visible external swelling in her airway is intact. She is breathing with ease. She does have ENT follow-up in a month. Given her recurrence presentation and worsening symptoms a CT scan of her neck was performed and is pending at this time. Signed out to Violeta Colbert who will follow-up CT read Differential Diagnosis Differential Diagnoses: The differential diagnosis associated with the presentation includes Laryngeal cancer, dysphagia, Schatzki's ring, esophageal dysmotility, impacted foreign body Lab Data [facility] Lab Attestation statement: I reviewed the patient's lab results. Normal CBC, mild hyponatremia 04/22/23 12:54 04/22/23 12:54 Labs: Lab Results 04/22/23 04/22/23 04/22/23 Range/Units 12:48 12:52 12:54 WBC 8.5 (4.8-10.8) X10*3/uL RBC 4.56 (4.20-5.50) X10*6/uL Hgb 13.8 (12.0-16.0) g/dl Hct 40.1 (37.0-47.0) % MCV 87.9 (80.0-98.0) fL MCH 30.3 (27.0-33.0) pg MCHC 34.4 (31.0-35.0) g/dl RDW 11.7 (11.0-16.0) % Plt Count 277 (160-400) X10*3/uL MPV 8.9 L (9.4-12.3) fL Immature Gran % (Auto) 0.2 (0.0-0.4) % Neut % (Auto) 75.2 H (45-73) % Lymph % (Auto) 17.7 L (20-40) % [place] % (Auto) 5.9 (2-11) % Eos % (Auto) 0.9 (0-4) % Baso % (Auto) 0.1 (0-2) % Lymph # (Auto) 1.5 (1.2-4.9) X10*3/uL [place] # (Auto) 0.5 (0.1-1.2) X10*3/uL Eos # (Auto) 0.1 (0.0-0.4) X10*3/uL Baso # (Auto) 0.0 (0.0-0.2) X10*3/uL Abs Immat Gran (auto) 0.02 (0.00-0.03) X10*3/uL Absolute Neuts (auto) 6.4 (2.0-8.3) x10*3/uL Absolute Nucleated RBC 0.000 (0.0-0.012) X10*3/uL Nucleated RBC % (auto) 0.0 (0.0-0.2) /100WBC Sodium (135-145) mmol/L Potassium (3.3-5.1) mmol/L Chloride (96-108) mmol/L Carbon Dioxide (22-29) mmol/L Anion Gap (12-20) BUN (9-16) mg/dL Creatinine (0.5-1.4) mg/dL Estim Creat Clear Calc Estimated GFR Random Glucose (60-115) mg/dL Calcium (8.4-10.2) mg/dL Influenza Type A (PCR) NEGATIVE (Negative) Influenza Type B (PCR) NEGATIVE (Negative) RSV RNA Qual (PCR) NEGATIVE (Negative) SARS-CoV-2 RNA (RT-PCR) NEGATIVE (Negative) S. pyogenes GrpA JOSELINE Negative (Negative) 04/22/23 Range/Units 12:54 WBC (4.8-10.8) X10*3/uL RBC (4.20-5.50) X10*6/uL Hgb (12.0-16.0) g/dl Hct (37.0-47.0) % MCV (80.0-98.0) fL MCH (27.0-33.0) pg MCHC (31.0-35.0) g/dl RDW (11.0-16.0) % Plt Count (160-400) X10*3/uL MPV (9.4-12.3) fL Immature Gran % (Auto) (0.0-0.4) % Neut % (Auto) (45-73) % Lymph % (Auto) (20-40) % [place] % (Auto) (2-11) % Eos % (Auto) (0-4) % Baso % (Auto) (0-2) % Lymph # (Auto) (1.2-4.9) X10*3/uL [place] # (Auto) (0.1-1.2) X10*3/uL Eos # (Auto) (0.0-0.4) X10*3/uL Baso # (Auto) (0.0-0.2) X10*3/uL Abs Immat Gran (auto) (0.00-0.03) X10*3/uL Absolute Neuts (auto) (2.0-8.3) x10*3/uL Absolute Nucleated RBC (0.0-0.012) X10*3/uL Nucleated RBC % (auto) (0.0-0.2) /100WBC Sodium 133 L (135-145) mmol/L Potassium 4.1 (3.3-5.1) mmol/L Chloride 99 (96-108) mmol/L Carbon Dioxide 26 (22-29) mmol/L Anion Gap 12 (12-20) BUN 17 H (9-16) mg/dL Creatinine 0.72 (0.5-1.4) mg/dL Estim Creat Clear Calc 67.7 Estimated GFR > 60 Random Glucose 98 (60-115) mg/dL Calcium 10.5 H (8.4-10.2) mg/dL Influenza Type A (PCR) (Negative) Influenza Type B (PCR) (Negative) RSV RNA Qual (PCR) (Negative) SARS-CoV-2 RNA (RT-PCR) (Negative) S. pyogenes GrpA JOSELINE (Negative) External Record Review External record reviewed: Outpatient record, Prior outpatient labs and Prior outpatient radiology Prescription Management I considered prescription management with: Pain Medication Critical Care Time Critical Care Time Critical Care Time: No Discharge Plan Discharge Clinical Impression: Odynophagia Patient Disposition: Home, Self-Care Instructions: Soft Diet (ED), Dysphagia (ED), Full Liquid Diet (DC) Additional Instructions: Take your medications as prescribed. If you were prescribed antibiotics today, it is important that you take your medication to their entirety, do not skip any doses, do not finish them early. Follow-up with your primary care provider this week. Return to the emergency department with new or worsening symptoms. Such as fevers, chills, chest pain, shortness of breath, nausea, vomiting, dizziness, headache, vision changes, lethargy In case of emergency call 911 CT/CT soft tissue neck w IV con IMPRESSION: No acute soft tissue abnormality in the neck. Prescriptions: No Action cefuroxime axetil 250 mg tablet 500 mg PO BID 7 Days Qty: 28 0RF phenazopyridine [Pyridium] 100 mg tablet 100 mg PO TID PRN (Reason: pain) Qty: 6 0RF penicillin V potassium 500 mg tablet 500 mg PO BID 10 Days Qty: 20 0RF prednisone 20 mg tablet 40 mg PO DAILY 5 Days Qty: 10 0RF amoxicillin-pot clavulanate 875-125 mg tablet 1 tab PO BID 7 Days Qty: 14 0RF benzonatate 100 mg capsule 100 mg PO TID PRN (Reason: cough) Qty: 14 0RF Referrals: Jens Elena [Physician] - 2 days Physician,Unknown J [Primary Care Provider] - 2 days Stand Alone Forms: Work/School Release
[2023-04-22 13:02] LABS: MANUAL DIFF FLAG NO
[2023-04-22 13:04] LABS: Basophils Percent Auto 0.1 % (0-2); Eosinophils Absolute Auto 0.1 X10*3/uL (0.0-0.4); Eosinophils Percent Auto 0.9 % (0-4); Hematocrit 40.1 % (37.0-47.0); Hemoglobin 13.8 g/dl (12.0-16.0); Imm Gran Abs Auto 0.02 X10*3/uL (0.00-0.03); Imm Gran Pct Auto 0.2 % (0.0-0.4); Lymphocytes Absolute Auto 1.5 X10*3/uL (1.2-4.9); Lymphocytes Percent Auto 17.7 % (20-40); Mean Corpuscular HGB Conc 34.4 g/dl (31.0-35.0); Mean Corpuscular Hemoglobin 30.3 pg (27.0-33.0); Mean Corpuscular Volume 87.9 fL (80.0-98.0); Mean Platelet Volume 8.9 fL (9.4-12.3); Monocytes Absolute Auto 0.5 X10*3/uL (0.1-1.2); Monocytes Percent Auto 5.9 % (2-11); Neutrophils Absolute Auto 6.4 x10*3/uL (2.0-8.3); Neutrophils Percent Auto 75.2 % (45-73); Platelet Count 277 X10*3/uL (160-400); Red Blood Count 4.56 X10*6/uL (4.20-5.50); Red Cell Distribution Width 11.7 % (11.0-16.0); White Blood Count 8.5 X10*3/uL (4.8-10.8)
[2023-04-22 13:28] LABS: Anion Gap 12 (12-20); Blood Urea Nitrogen 17 mg/dL (9-16); Calcium 10.5 mg/dL (8.4-10.2); Carbon Dioxide 26 mmol/L (22-29); Chloride 99 mmol/L (96-108); Creatinine Clr Calc Pharmacy 67.7; Estimated Glomerular Filt Rate > 60; Glucose Random 98 mg/dL (60-115); Potassium 4.1 mmol/L (3.3-5.1); Sodium 133 mmol/L (135-145)
[2023-04-22 13:44] LABS: IDNOW Serial# 08D9AD1C; Strep A Nucleic Acid Negative (Negative)
[2023-04-22 13:45] LABS: Influenza A PCR NEGATIVE (Negative); Influenza B PCR NEGATIVE (Negative); Resp Syncy Virus RNA Qual PCR NEGATIVE (Negative); SARS COV2 PCR INHOUSE NEGATIVE (Negative)
[2023-04-22 13:56] VITALS: BP 141/75; PULSE 66; RESP 16; TEMP 36.8; O2SAT 98
--- NOTE | 2023-04-22 15:23 | PC.NURSE ---
pt resting in bed, resp equal and unlabored, patient maintains own airway and secretions. speaking full and clear sentences. VSS
[2023-04-22] MEDS: iohexoL 350 MG/ML 100 ML INFUS..BTL 60 ML IV (15:34)
[2023-04-22 16:10] VITALS: BP 142/95; PULSE 64; RESP 18; O2SAT 98
== END 2023-04-22 17:30 | disposition home or self-care (01) ==
PROVIDERS: Registered Nurse Emergency; Emergency Provider Emergency Medicine
DX: R13.10 Dysphagia, unspecified (principal); J02.9 Acute pharyngitis, unspecified; Z20.822 Contact with and (suspected) exposure to COVID-19; Z20.828 Contact with and (suspected) exposure to other viral communicable diseases; Z87.891 Personal history of nicotine dependence; Z79.899 Other long term (current) drug therapy
CPT/HCPCS: 0241U; 70491; 80048; 85025; 87651; 99284; Q9967

== ENCOUNTER 2023-07-23 10:18 | Outpatient (REF) | payer MEDICARE, SELFPAY ==
--- NOTE | ~2023-07-23 | FL_ITS ---
EXAMINATION: XR FLUOROSCOPY UPPER GI WITH AIR CLINICAL INFORMATION: Hiatus hernia, constant heartburn, dysphagia. COMPARISON: No prior. Correlation made with chest x-ray 03/17/2023. TECHNIQUE: Fluoroscopic air contrast upper GI examination was performed utilizing standard techniques with thin and thick barium and effervescent granules. Numerous spot images were obtained. In addition, numerous fluoroscopic image holds and cine run image holds were obtained. FINDINGS: Lateral cine images of the oropharynx and hypopharynx demonstrate normal swallow mechanism with normal epiglottic inversion and soft palate elevation. No tracheal penetration, glottic or subglottic aspiration identified. No nasopharyngeal reflux present. Hypopharyngeal structures appear normal without evidence of mass or diverticulum. There was rather profound cricopharyngeal achalasia identified with mild ballooning of the hypopharynx. (Refer to RF series 1, image 32 of 69; also refer to series 3, image 36 of 88). There was consistent pooling in the vallecula and piriform sinuses which did clear upon subsequent swallows. Dual and single contrast images of the esophagus demonstrate normal caliber, contour, and mucosal pattern. No evidence of stricture, mass, or ulcerations identified. Esophageal peristalsis was normal, however followed by numerous disordered tertiary contractions within the mid and distal esophagus, consistent with presbyesophagus. Small type I hiatus hernia was present. Rather profound gastroesophageal reflux was identified to the level of the thoracic inlet. Dual contrast and single contrast images of the stomach demonstrated normal contour of the stomach. There is a lenticular mucosal pattern suggesting erosive gastritis throughout the fundus, body, and less so within the antrum. No evidence of mass, large ulceration, or other abnormality. Contrast freely passed into the gastric antrum and duodenal bulb without delay. Single and air-contrast images of the duodenal bulb demonstrate no abnormality. The duodenal sweep has a normal appearance, course, and mucosal fold appearance. Ligament of Treitz is in appropriate position. The imaged proximal jejunum has a normal fold pattern and caliber. FLUOROSCOPY TIME: 3 minutes 40 seconds Number of Spot Images: 5 fluoroscopic cine image hold runs obtained; 13 fluoroscopic image hold spot images. 4 fluoroscopic spot image holds. DOSE AREA PRODUCT: 2121 uGy-m2 (microgray-meter squared) FL/FL barium swallow IMPRESSION: 1. Rather profound cricopharyngeal achalasia, causing ballooning of the hypopharynx although no laryngeal penetration or gross aspiration was evident. Persistent barium pooling in the vallecula and piriform sinuses noted, which subsequently cleared upon dry swallows. 2. Rather profound gastroesophageal reflux identified to the level of the thoracic inlet. Normal esophageal mucosal appearance. Stasis of barium within the esophagus was noted, likely due to disordered peristalsis. 3. Disordered gastric motility predominantly within the distal one half of the esophagus, consistent with moderate presbyesophagus. 4. Small type I hiatus hernia identified. 5. Irregular lenticular mucosal appearance to the gastric folds throughout the fundus, body, and less so in the antrum, suggestive of erosive gastritis.
== END 2023-07-23 10:19 | disposition home or self-care (01) ==
LOC: HO.XRAY 10:18
PROVIDERS: Visit Provider Otolaryngology
DX: R13.10 Dysphagia, unspecified (principal); K21.9 Gastro-esophageal reflux disease without esophagitis
CPT/HCPCS: 74220

== ENCOUNTER → 2023-07-23 10:30 | Outpatient (BNV) | payer MEDICARE, SELFPAY | PROVIDERS: Visit Provider Radiology Diagnostic Radiology | DX: R13.10 Dysphagia, unspecified (principal) | CPT/HCPCS: 74221 ==

== ENCOUNTER 2023-09-29 10:23 | Outpatient (REF) | payer MEDICARE, SELFPAY ==
--- NOTE | ~2023-09-29 | MM_ITS ---
EXAMINATION: MM SCREENING DIGITAL BREAST TOMOSYNTHESIS, BILATERAL CLINICAL INFORMATION: Screening. Asymptomatic. COMPARISON: Mammography: This study is compared with prior exams dating back to 2019. TECHNIQUE: Digital breast tomosynthesis is performed in both the craniocaudal and mediolateral oblique views along with computer-aided detection (CAD). Synthesized 2D images are generated from the tomosynthesis. FINDINGS: There are scattered areas of fibroglandular density (ACR BI-RADS breast composition Category b). There are no significant masses, abnormal calcifications, or other abnormalities. Few, bilateral, benign secretory calcifications are present. MM/MM tomosynthesis screening BI IMPRESSION: No mammographic evidence of malignancy. ASSESSMENT: BI-RADS BI-RADS 2 - Benign Findings RECOMMENDATION: Routine annual mammography screening. 1 year F/U This examination should not preclude the clinical evaluation of a suspicious palpable abnormality. This patient's information was entered into a reminder system with a target due date for their next mammogram.
== END 2023-09-29 10:24 | disposition home or self-care (01) ==
LOC: HO.MAMMO 10:23
PROVIDERS: PCP Internal Medicine; Visit Provider Internal Medicine
DX: Z12.31 Encounter for screening mammogram for malignant neoplasm of breast (principal)
CPT/HCPCS: 77063; 77067

== ENCOUNTER → 2023-09-29 10:30 | Outpatient (BNV) | payer MEDICARE, SELFPAY | PROVIDERS: PCP Internal Medicine; Visit Provider Radiology Diagnostic Radiology | DX: Z12.31 Encounter for screening mammogram for malignant neoplasm of breast (principal) | CPT/HCPCS: 77063; 77067 ==

== ENCOUNTER 2024-04-21 11:56 | Inpatient (IN) | payer MEDICARE, SELFPAY ==
--- NOTE | ~2024-04-21 | FL_ITS ---
EXAMINATION: XR FLUOROSCOPY WITH IMAGES CLINICAL INFORMATION: Right retrograde intramedullary nail COMPARISON: CT right lower extremity on 04/21/2024 TECHNIQUE: Fluoroscopy Supervised By: Dr. Neel Perez. Fluoroscopy Time: 1.1 minutes. Cumulative Dose: 10 mGy. DAP: 0.148 Gycm2. Images: 6. FINDINGS: Fluoroscopy performed during femoral fixation. FL/FL guidance in OR IMPRESSION: Fluoroscopy performed in the OR. Please see the operative report for additional information.
--- NOTE | ~2024-04-21 | CT_ITS ---
EXAMINATION: CT HEAD WITHOUT CONTRAST CLINICAL INFORMATION: Fall pain COMPARISON: None TECHNIQUE: Contiguous axial imaging was performed from the skull base to vertex without intravenous administration of contrast. This CT examination was performed using dose optimization techniques as appropriate, variously including the following: *Automated exposure control *Adjustment of mA and/or kV according to patient size (this includes techniques or standardized protocols for targeted exams where dose is matched to indication/reason for exam; i.e. extremities or head) *Use of iterative reconstruction technique DLP: 572.23 mGy-cm FINDINGS: There is no evidence of acute intracranial hemorrhage or territorial infarction. Chronic white matter small vessel ischemic changes No abnormal mass effect or midline shift is seen. [place] to white matter differentiation is well preserved. No extra-axial fluid collections are identified. The ventricles are normal in size. There is no abnormal attenuation within the brain parenchyma. Subcutaneous soft tissue nodule with calcifications along the high midline left frontal bone measuring 1.2 cm. The osseous structures and soft tissues are normal. The mastoid air cells and visualized portions of the paranasal sinuses are well aerated. CT/CT cervical spine wo IV con IMPRESSION: 1. No acute intracranial pathology. 2. Chronic white matter small vessels changes. EXAMINATION: Noncontrast CT scan of the cervical spine. INDICATION: Fall pain COMPARISON: None. TECHNIQUE: Helical, multidetector axial images were obtained from the occiput to the upper thorax. Coronal and sagittal reformats of the cervical spine were provided for interpretation. DLP: 216.22 mGy-cm FINDINGS: No acute fractures or dislocations of the cervical spine are seen. Straightening the normal cervical curvature. Very slight grade 1 anterolisthesis of C3 on C4 and C4 on C5. Very slight grade 1 retrolisthesis of C5 on C6. Posterior disc osteophyte complex at C5-C6. Multilevel degenerative changes. Anatomic alignment and positioning of the vertebral bodies and posterior elements is noted. The atlantoaxial joint and craniovertebral articulations are normal without evidence of subluxation. There is no prevertebral soft tissue swelling. Visualized portions of the thyroid are unremarkable. Biapical pleural parenchymal lung scarring. IMPRESSION: 1. No acute visible fracture or dislocation. 2. Straightening the normal cervical curvature. 3. Very slight grade 1 anterolisthesis of C3 on C4 and C4 on C5. 4. Very slight grade 1 retrolisthesis of C5 on C6. 5. Multilevel degenerative changes.
--- NOTE | ~2024-04-21 | CT_ITS ---
EXAMINATION: CT right knee without contrast CT right femur without contrast INDICATION: Pain. Injury. COMPARISON: Radiographs from the same date TECHNIQUE: Multidetector volumetric imaging was obtained through the right femur and into the right knee without contrast material. Multiplanar reformatted images in coronal and sagittal orientations were submitted. This CT examination was performed using dose optimization techniques as appropriate, variously including the following: *Automated exposure control *Adjustment of mA and/or kV according to patient size (this includes techniques or standardized protocols for targeted exams where dose is matched to indication/reason for exam; i.e. extremities or head) *Use of iterative reconstruction technique DLP: 983.03 mGy-cm (accession [id number]), 354.53 mGy-cm (accession [id number]) FINDINGS: There is a sagittally oriented, nondisplaced, incomplete fracture of the distal femur with intercondylar extension, propagating cephalad to the level of the mid tibial diaphysis 15 cm from the intercondylar notch. At the articular surface of the distal femur, the fracture line extends through the contiguous portion of the trochlear groove and through the intercondylar notch. No additional femoral fractures are intact. There is mild to moderate osteoarthritis at the right hip with cephalad joint space narrowing and subchondral cystic change as well as marginal osteophytes. No acute intrapelvic abnormalities. Musculature is unremarkable. There is a large lipohemarthrosis at the right knee no intra-articular loose bodies. In addition to the aforementioned incomplete, fracture, there is a sagittally oriented fracture through the lateral patellar facet with minimal displacement (3 mm). No significant articular cortical step-off. There is minimal patellofemoral compartment osteophyte is characterized by small marginal osteophytes and small foci of subchondral cystic change at both the medial patellar and medial trochlear facet. Mild osteophyte is also present in the medial compartment with small marginal osteophytes and mild subchondral sclerosis. Lateral compartment is unremarkable. The tibial plateau and proximal fibula are intact. Mild osteoarthritis in the proximal tibiofibular joint. Cruciate and collateral ligaments are intact. CT/CT knee RT wo IV con IMPRESSION: 1. Nondisplaced, incomplete, sagittally oriented intercondylar fracture of the distal femur with proximal extension into the mid tibial diaphysis. 2. Minimally displaced intra-articular fracture of the lateral patellar facet. 3. 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 4. 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 More mild osteoarthritis in the right knee.
--- NOTE | ~2024-04-21 | XR_ITS ---
EXAMINATION: XR KNEE, RIGHT CLINICAL INFORMATION: Pain, injury COMPARISON: None available. TECHNIQUE: Three views of the right knee. FINDINGS: The AP view of the knee is a limited view due to presence of opacities and linear lucencies that appear to be related to overlying clothing or sheet. One of these vertical lucencies mimics the appearance of a patella fracture and another appears to be mimicking the appearance of an intercondylar femoral fracture. However, no femoral or patellar fractures are seen on the other projections that are not compromised by the overlying material. No knee joint effusion. There is minimal osteophyte formation of the patella. The joint spaces appear to be well preserved. XR/XR knee RT 3V IMPRESSION: Note that the anteroposterior view of the knee is a limited view and ideally would be repeated if there is any significant knee pain after the recent fall. However, based on review of all radiographic projections, there is no convincing acute osseous injury. Also, no joint effusion.
--- NOTE | ~2024-04-21 | CT_ITS ---
EXAMINATION: CT right knee without contrast CT right femur without contrast INDICATION: Pain. Injury. COMPARISON: Radiographs from the same date TECHNIQUE: Multidetector volumetric imaging was obtained through the right femur and into the right knee without contrast material. Multiplanar reformatted images in coronal and sagittal orientations were submitted. This CT examination was performed using dose optimization techniques as appropriate, variously including the following: *Automated exposure control *Adjustment of mA and/or kV according to patient size (this includes techniques or standardized protocols for targeted exams where dose is matched to indication/reason for exam; i.e. extremities or head) *Use of iterative reconstruction technique DLP: 983.03 mGy-cm (accession [id number]), 354.53 mGy-cm (accession [id number]) FINDINGS: There is a sagittally oriented, nondisplaced, incomplete fracture of the distal femur with intercondylar extension, propagating cephalad to the level of the mid tibial diaphysis 15 cm from the intercondylar notch. At the articular surface of the distal femur, the fracture line extends through the contiguous portion of the trochlear groove and through the intercondylar notch. No additional femoral fractures are intact. There is mild to moderate osteoarthritis at the right hip with cephalad joint space narrowing and subchondral cystic change as well as marginal osteophytes. No acute intrapelvic abnormalities. Musculature is unremarkable. There is a large lipohemarthrosis at the right knee no intra-articular loose bodies. In addition to the aforementioned incomplete, fracture, there is a sagittally oriented fracture through the lateral patellar facet with minimal displacement (3 mm). No significant articular cortical step-off. There is minimal patellofemoral compartment osteophyte is characterized by small marginal osteophytes and small foci of subchondral cystic change at both the medial patellar and medial trochlear facet. Mild osteophyte is also present in the medial compartment with small marginal osteophytes and mild subchondral sclerosis. Lateral compartment is unremarkable. The tibial plateau and proximal fibula are intact. Mild osteoarthritis in the proximal tibiofibular joint. Cruciate and collateral ligaments are intact. CT/CT femur RT wo IV con IMPRESSION: 1. Nondisplaced, incomplete, sagittally oriented intercondylar fracture of the distal femur with proximal extension into the mid tibial diaphysis. 2. Minimally displaced intra-articular fracture of the lateral patellar facet. 3. 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 4. 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 More mild osteoarthritis in the right knee.
[2024-04-21 12:01] VITALS: BP 122/80; PULSE 70; O2SAT 99
--- NOTE | 2024-04-21 12:02 | ED_ITS ---
HPI - General Adult General Chief complaint: Fall Stated complaint: SLIP/FALL @ MALL,R KNEE PAIN PER EMS Time Seen by Provider: 04/21/24 12:00 Source: patient and EMS Mode of arrival: EMS Limitations: no limitations History of Present Illness ED Provider: Zulema De Leon PA-C HPI narrative: The patient is a 73 year old assigned at female who presents to the ER via ambulance due to a trip and fall in the [place]. States that she was walking, then her shoe's rubber sole caught on the floor causing her to fall straight onto her right knee. Denies dizziness, syncope, head strike, LOC and blood thinners. Reports that her right knee is severely painful, has a sharp pain radiating from knee down her leg and to right thigh, it is constant and 10/10 pain. Unable to bear weight with right leg. Denies chest pain, palpitations, dyspnea, N/V/abdominal or back pain. Onset (ago): minute(s) Location: right and lower extremity Radiation: non-radiation Severity: mild Severity scale (1-10): 4 Quality: aching and dull Pain Consistency: constant Relieving factors: none Exacerbating factors: none Associated symptoms: denies other symptoms Treatments prior to arrival: none Related Data Home Medications ?Medication ?Instructions ?Recorded ?Confirmed omeprazole 20 mg capsule,delayed 20 mg PO BID 04/21/24 04/21/24 release simvastatin 20 mg tablet 20 mg PO BEDTIME 04/21/24 04/21/24 zolpidem 5 mg tablet 5 mg PO BEDTIME PRN Sleep 04/21/24 04/21/24 Allergies Allergy/AdvReac Type Severity Reaction Status Date / Time No Known Allergies Allergy Verified 04/21/24 12:08 Review of Systems 2 Constitutional: Constitutional: Reports no additional constitutional complaints, Denies chills, Denies fever(s) and Denies night sweats Eyes: Eyes: Reports no additional eye complaints, Denies blurry vision, Denies change in vision, Denies diplopia, Denies eye discharge, Denies loss of vision and Denies eye pain ENT: Denies dizziness Cardiovascular: Cardiovascular: Reports no additional cardiovascular complaints, Denies chest pain, Denies lightheadedness, Denies Loss of Consciousness and Denies dyspnea Respiratory: Respiratory: Reports no additional respiratory complaints and Denies dyspnea Gastrointestinal: Gastrointestinal: Reports no additional gastrointestinal complaints, Denies abdominal pain, Denies melena, Denies hematochezia, Denies change in bowel habits and Denies change in stool character Genitourinary: Genitourinary: Denies hematuria, Denies urinary frequency, Denies dysuria, Denies urinary incontinence, Denies urinary hesitancy and Denies urinary urgency Musculoskeletal: Musculoskeletal: Reports no additional musculoskeletal complaints, Denies numbness and Denies tingling Comments: right knee pain Neurologic: Denies dizziness, Denies loss of vision, Denies numbness and Denies tingling Psychiatric: Psychiatric: Reports no additional psychiatric complaints Endocrine: Endocrine: Reports no additional endocrine complaints Hematologic/Lymphatic: Hematologic/Lymphatic: Reports no additional hematologic/lymphatic complaints Allergic/Immunologic: Allergic/Immunologic: Reports no additional allergic/immunologic complaints PMFSH Past Medical History Attestation statement: The following information was validated with the patient. Source: old records reviewed and nursing notes reviewed Medical History Insomnia Mixed hyperlipidemia Gastroesophageal reflux disease Social History Social History Patient Tobacco Use Status: Never used Tobacco Smoked in Last 30 Days: No Use of substances other than those prescribed or required for medical reasons: No Advance Directives: Yes Advance Directives Information Provided: No Advance Directives on File: No Nutrition Risks: No Nutritional Risk Physical Exam ED Vital Signs: Vital Signs - 24 hr 04/21/24 12:07 04/21/24 14:02 Temperature 98.0 F 98.2 F Pulse Rate 65 59 Respiratory Rate 16 14 Blood Pressure 133/62 Pulse Oximetry 97 98 Oxygen Delivery Method Room Air Room Air BMI result Body Mass Index 24.8 Const General: cooperative, no acute distress, alert and awake Nutritional Appearance: well nourished Orientation/consciousness: patient oriented x3 Limitations: no limitations HENMT Head: Yes normal to inspection and Yes atraumatic Ears: hearing grossly normal bilaterally and external ears normal General nose exam: Normal external nose present, no nasal discharge noted and no epistaxis Face and sinus: Yes normal facial exam, No abrasion and No laceration Mouth: Normal oral and palatal mucosa present, no drooling and no muffled voice Eyes General: appearance normal, both eyes and all related structures Periorbital: periorbital findings normal Eyelids: Yes eyelids normal Conjunctivae: conjunctivae normal Pupils: Equal, round and reactive pupils present EOM: EOMs intact bilaterally Neck Neck: Yes normal visual inspection, Yes full ROM and Yes no lymphadenopathy Chest Chest palpation & inspection: normal inspection of the chest Resp Effort & Inspection: normal respiratory effort and able to speak in complete sentences Auscultation: clear to auscultation bilaterally Cardio Rate: regular rate Rhythm: regular rhythm GI Inspection: Yes normal to inspection Neuro General: patient oriented x3 and moves all extremities Cranial nerves: Yes Equal, round and reactive pupils present Cognition (Neuro): normal cognition Extrem General: Yes normal to inspection, Yes full ROM and Yes capillary refill normal Right lower extremity: knee Details: swelling, abnormal ROM Details: unable to extend lower leg actively and ecchymosis Psych Appearance: grossly normal Mental Status: mental status grossly normal Affect: normal affect Attitude: cooperative Thought process: Normal thought process present Thought content: Normal thought content present Insight: Good insight present (Psych) Medications Administered Generic Name Dose Route Start Last Admin Trade Name Freq PRN Reason Stop Dose Admin Atorvastatin Calcium 10 mg 04/21/24 21:00 04/21/24 19:59 Atorvastatin Calcium 10 Mg Tablet PO 10 mg BEDTIME SELAM Administration Morphine Sulfate 4 mg 04/21/24 16:08 04/22/24 08:13 Morphine Sulfate 4 Mg/Ml Cartridge IVPUSH 4 mg Q4H PRN Administration Pain, Severe (Pain Scale 7-10) Protocol Omeprazole 20 mg 04/21/24 18:30 04/22/24 05:30 Omeprazole 20 Mg Capsule. PO 20 mg BID@[id number],1787 [facility] Administration Ondansetron HCl 4 mg 04/21/24 21:05 04/22/24 08:12 Ondansetron Hcl 4 Mg/2 Ml Vial IVPUSH 4 mg Q8H PRN Administration Nausea and Vomiting Prochlorperazine Edisylate 5 mg 04/21/24 21:07 04/21/24 22:00 Prochlorperazine Edisylate 10 Mg/2 Ml Vial IVPUSH 5 mg Q6H PRN Administration Nausea and Vomiting Sodium Chloride 3 ml 04/22/24 00:00 04/22/24 08:09 0.9 % Sodium Chloride Flush 3 Ml Syringe IVFLUSH 3 ml QSHIFT SELAM Administration Discontinued Medications Generic Name Dose Route Start Last Admin Trade Name Ariel PRN Reason Stop Dose Admin Morphine Sulfate 4 mg 04/21/24 15:43 04/21/24 15:48 Morphine Sulfate 4 Mg/Ml Cartridge IVPUSH 04/21/24 15:44 4 mg ONCE ONE Administration Protocol Ondansetron HCl 4 mg 04/21/24 15:38 04/21/24 15:44 Ondansetron Hcl 4 Mg/2 Ml Vial IVPUSH 04/21/24 15:39 4 mg ONCE ONE Administration Oxycodone HCl 10 mg 04/21/24 12:14 04/21/24 12:52 Oxycodone Hcl Immed Release 5 Mg Tablet PO 04/21/24 12:15 10 mg ONCE ONE Administration Medical Decision Making Medical Decision Making MDM Narrative: The patient is a 73 year old assigned at female who presents to the ER via ambulance due to a trip and fall in the [place]. On arrival to the ER, the patient is hemodynamically stable in no acute distress. On physical exam, the right knee portrays swelling with echymosis, localized tenderness over the distal femur/proximal tibia/ patella. Limited ROM due to pain, unable to bear weight or extend right lower leg. Right knee x-ray was vaguely interpreted as negative for any acute maegan process. Patient's CT scan of the right lower extremity shows a patellar and femur fracture. I consulted with orthopedics who recommended admission to medicine for a surgical repair tomorrow. I spoke to the hospitalist team who agreed to admission. Differential Diagnosis Differential Diagnoses: The differential diagnosis associated with the presentation includes Right knee injury Right patellar tendon injury Right knee sprain Right knee strain Right femur fracture Right tib fib fracture Fall Right patellar fracture Admission/Observation Consideration of admission/observation: Escalation of care including admission/observation considered Patient admitted. Consult Healthcare Provider Management of the patient was discussed with: Hospitalist (spoke to the hospitalist as noted in the MDM Rationale portion of this note) and Physical Damage Appraiser (spoke to the orthopedic team as noted in the MDM Rationale portion of this note) Lab Data [facility] Lab Attestation statement: I reviewed the patient's lab results. My interpretation of these studies and their corresponding values is that they are grossly normal. 04/22/24 05:11 04/22/24 05:11 Independent Interpretation I performed an independent interpretation of an: Plain X-Ray and CT Scan Interpretation: My interpretation is in agreement with the radiologist's impression of these imaging studies. - EXAMINATION: XR KNEE, RIGHT CLINICAL INFORMATION: Pain, injury COMPARISON: None available. TECHNIQUE: Three views of the right knee. FINDINGS: The AP view of the knee is a limited view due to presence of opacities and linear lucencies that appear to be related to overlying clothing or sheet. One of these vertical lucencies mimics the appearance of a patella fracture and another appears to be mimicking the appearance of an intercondylar femoral fracture. However, no femoral or patellar fractures are seen on the other projections that are not compromised by the overlying material. No knee joint effusion. There is minimal osteophyte formation of the patella. The joint spaces appear to be well preserved. XR/XR knee RT 3V IMPRESSION: Note that the anteroposterior view of the knee is a limited view and ideally would be repeated if there is any significant knee pain after the recent fall. However, based on review of all radiographic projections, there is no convincing acute osseous injury. Also, no joint effusion. Dictated By: Kenney Hernandez MD Signed By: Electronically signed by Kenney Hernandez MD 04/21/24 4879 - EXAMINATION: CT right knee without contrast CT right femur without contrast INDICATION: Pain. Injury. COMPARISON: Radiographs from the same date TECHNIQUE: Multidetector volumetric imaging was obtained through the right femur and into the right knee without contrast material. Multiplanar reformatted images in coronal and sagittal orientations were submitted. This CT examination was performed using dose optimization techniques as appropriate, variously including the following: *Automated exposure control *Adjustment of mA and/or kV according to patient size (this includes techniques or standardized protocols for targeted exams where dose is matched to indication/reason for exam; i.e. extremities or head) *Use of iterative reconstruction technique DLP: 983.03 mGy-cm (accession [id number]), 354.53 mGy-cm (accession [id number]) FINDINGS: There is a sagittally oriented, nondisplaced, incomplete fracture of the distal femur with intercondylar extension, propagating cephalad to the level of the mid tibial diaphysis 15 cm from the intercondylar notch. At the articular surface of the distal femur, the fracture line extends through the contiguous portion of the trochlear groove and through the intercondylar notch. No additional femoral fractures are intact. There is mild to moderate osteoarthritis at the right hip with cephalad joint space narrowing and subchondral cystic change as well as marginal osteophytes. No acute intrapelvic abnormalities. Musculature is unremarkable. There is a large lipohemarthrosis at the right knee no intra-articular loose bodies. In addition to the aforementioned incomplete, fracture, there is a sagittally oriented fracture through the lateral patellar facet with minimal displacement (3 mm). No significant articular cortical step-off. There is minimal patellofemoral compartment osteophyte is characterized by small marginal osteophytes and small foci of subchondral cystic change at both the medial patellar and medial trochlear facet. Mild osteophyte is also present in the medial compartment with small marginal osteophytes and mild subchondral sclerosis. Lateral compartment is unremarkable. The tibial plateau and proximal fibula are intact. Mild osteoarthritis in the proximal tibiofibular joint. Cruciate and collateral ligaments are intact. CT/CT knee RT wo IV con IMPRESSION: 1. Nondisplaced, incomplete, sagittally oriented intercondylar fracture of the distal femur with proximal extension into the mid tibial diaphysis. 2. Minimally displaced intra-articular fracture of the lateral patellar facet. 3. 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 4. 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 More mild osteoarthritis in the right knee. Dictated By: Gerald Bryan MD Signed By: Electronically signed by Gerald Bryan MD 04/21/24 1621 - EXAMINATION: CT HEAD WITHOUT CONTRAST CLINICAL INFORMATION: Fall pain COMPARISON: None TECHNIQUE: Contiguous axial imaging was performed from the skull base to vertex without intravenous administration of contrast. This CT examination was performed using dose optimization techniques as appropriate, variously including the following: *Automated exposure control *Adjustment of mA and/or kV according to patient size (this includes techniques or standardized protocols for targeted exams where dose is matched to indication/reason for exam; i.e. extremities or head) *Use of iterative reconstruction technique DLP: 572.23 mGy-cm FINDINGS: There is no evidence of acute intracranial hemorrhage or territorial infarction. Chronic white matter small vessel ischemic changes No abnormal mass effect or midline shift is seen. [place] to white matter differentiation is well preserved. No extra-axial fluid collections are identified. The ventricles are normal in size. There is no abnormal attenuation within the brain parenchyma. Subcutaneous soft tissue nodule with calcifications along the high midline left frontal bone measuring 1.2 cm. The osseous structures and soft tissues are normal. The mastoid air cells and visualized portions of the paranasal sinuses are well aerated. CT/CT head/brain wo IV con IMPRESSION: 1. No acute intracranial pathology. 2. Chronic white matter small vessels changes. EXAMINATION: Noncontrast CT scan of the cervical spine. INDICATION: Fall pain COMPARISON: None. TECHNIQUE: Helical, multidetector axial images were obtained from the occiput to the upper thorax. Coronal and sagittal reformats of the cervical spine were provided for interpretation. DLP: 216.22 mGy-cm FINDINGS: No acute fractures or dislocations of the cervical spine are seen. Straightening the normal cervical curvature. Very slight grade 1 anterolisthesis of C3 on C4 and C4 on C5. Very slight grade 1 retrolisthesis of C5 on C6. Posterior disc osteophyte complex at C5-C6. Multilevel degenerative changes. Anatomic alignment and positioning of the vertebral bodies and posterior elements is noted. The atlantoaxial joint and craniovertebral articulations are normal without evidence of subluxation. There is no prevertebral soft tissue swelling. Visualized portions of the thyroid are unremarkable. Biapical pleural parenchymal lung scarring. IMPRESSION: 1. No acute visible fracture or dislocation. 2. Straightening the normal cervical curvature. 3. Very slight grade 1 anterolisthesis of C3 on C4 and C4 on C5. 4. Very slight grade 1 retrolisthesis of C5 on C6. 5. Multilevel degenerative changes. Dictated By: Damion Marquez MD Signed By: Electronically signed by Damion Marquez MD 04/21/24 6256 Radiology Impression Discussion of test interpretation with radiology: I have reviewed the radiologist's reading. Independent Historian Clinical information obtained from an independent historian. History obtained from or confirmed by: EMS (EMS provided additional history and confirmed the history provided by the patient.) Critical Care Time Critical Care Time Critical Care Time: Yes Total Critical Care Time: 48 Attestation: I spent 48 minutes of Critical Care Time with this patient. This does not include time spent on separately reported billable procedures. Discharge Plan Discharge Clinical Impression: Fall Femur fracture Qualifiers: Encounter type: initial encounter Femur location: distal, unspecified portion F racture type: closed Fracture morphology: unspecified fracture morphology L aterality: right Qualified Code(s): S72.401A - Unspecified fracture of lower end of right femur, initial encounter for closed fracture Fracture, patella Qualifiers: Encounter type: initial encounter Fracture type: closed Fracture morphology: o ther fracture Laterality: right Qualified Code(s): S82.091A - Other fracture of right patella, initial encounter for closed fracture Patient Disposition: Admitted As Inpatient
[2024-04-21 12:07] VITALS: PULSE 65; RESP 16; TEMP 36.7; O2SAT 97; BMI 24.8
[2024-04-21] MEDS: oxyCODONE HCl Immed Release 5 MG TABLET 10 MG PO (12:52)
[2024-04-21 14:02] VITALS: BP 133/62; PULSE 59; RESP 14; TEMP 36.8; O2SAT 98
[2024-04-21] MEDS: ondansetron HCL 4 MG/2 ML VIAL IVPUSH (15:44)
[2024-04-21] MEDS: Morphine Sulfate 4 MG/ML CARTRIDGE IVPUSH ×2 (15:48→19:59)
--- NOTE | 2024-04-21 16:09 | PM.IMHP ---
History of Present Illness Date of Service: 04/21/24 Chief Complaint: Fall This is a 73-year-old female with pertinent history of gastroesophageal reflux disease, insomnia, mixed hyperlipidemia who presents to the emergency department for evaluation after a fall. Patient states that she was walking out target, she tripped and fell onto her right knee. Did not lose consciousness. No chest pain or palpitations prior to the fall. No jerking movement of extremities. She did not hit her head. Patient has had right knee swelling and limited movement of right lower extremity since the fall. No nausea, vomiting, fever, chills, shortness of breath, abdominal pain, changes in urinary or bowel habits. In the emergency department, imaging with nondisplaced intercondylar fracture of the distal femur. Also intra-articular fracture of the lateral patellar facet. Orthopedic surgery was consulted who requested admission. Review of Systems Constitutional: Constitutional: Reports no additional constitutional complaints Cardiovascular: Cardiovascular: Reports no additional cardiovascular complaints Respiratory: Respiratory: Reports no additional respiratory complaints Gastrointestinal: Gastrointestinal: Reports no additional gastrointestinal complaints Genitourinary: Genitourinary: Reports no additional female genitourinary complaints Musculoskeletal: Musculoskeletal: Reports arthralgias and Reports joint swelling [facility] Medical History Insomnia Mixed hyperlipidemia Gastroesophageal reflux disease Pertinent family history: No family history of early CAD Social History Patient Tobacco Use Status: Never used Tobacco Smoked in Last 30 Days: No Use of substances other than those prescribed or required for medical reasons: No Advance Directives: Yes Advance Directives Information Provided: No Advance Directives on File: No Nutrition Risks: No Nutritional Risk Meds Allergies Allergy/AdvReac Type Severity Reaction Status Date / Time No Known Allergies Allergy Verified 04/21/24 12:08 Home Medications ?Medication ?Instructions ?Recorded ?Confirmed ?Last Taken ?Type omeprazole 20 mg capsule,delayed 20 mg PO BID 04/21/24 04/21/24 04/21/24 History release simvastatin 20 mg tablet 20 mg PO BEDTIME 04/21/24 04/21/24 04/21/24 History zolpidem 5 mg tablet 5 mg PO BEDTIME PRN Sleep 04/21/24 04/21/24 Unknown History Physical Exam Vital Signs and Narrative: Vital Signs: Last Vital Signs Temp 98.2 F 04/21/24 14:02 Pulse 59 04/21/24 14:02 Resp 14 04/21/24 14:02 BP 133/62 04/21/24 14:02 Pulse Ox 98 04/21/24 14:02 O2 Del Method Room Air 04/21/24 14:02 BMI result Body Mass Index 24.8 Middle-aged female lying in bed in no distress Neck supple, no JVD Regular rate and rhythm, S1-S2 heard Regular breath sounds bilaterally, no wheezing or crackles appreciated Abdomen soft nontender, no guarding, no rigidity Patient is awake, alert and oriented to self, place, time and person ; no focal motor deficit Psych: Normal mood Right knee swelling seen, limited motion of right lower extremity due to pain Results Labs 04/21/24 17:27 04/21/24 17:27 Imaging Radiologist's Impressions: Impressions Knee X-Ray 04/21/24 12:48 IMPRESSION: Note that the anteroposterior view of the knee is a limited view and ideally would be repeated if there is any significant knee pain after the recent fall. However, based on review of all radiographic projections, there is no convincing acute osseous injury. Also, no joint effusion. Assessment and Plan (1) Fracture, patella: Qualifiers: Encounter type: initial encounter Fracture morphology: other fracture Fracture type: closed Laterality: right Qualified Code(s): S82.091A - Other fracture of right patella, initial encounter for closed fracture Status: Acute (2) Femur fracture: Qualifiers: Encounter type: initial encounter Femur location: distal, unspecified portion Fracture morphology: unspecified fracture morphology Fracture type: closed Laterality: right Qualified Code(s): S72.401A - Unspecified fracture of lower end of right femur, initial encounter for closed fracture Status: Acute Plan This is a 73-year-old female with pertinent history of gastroesophageal reflux disease, insomnia, mixed hyperlipidemia who presents to the emergency department for evaluation after a fall. #. Right femur and patellar fracture due to mechanical fall: Will admit patient and initiate IV opioids p.r.n. for analgesia. Consulting orthopedic surgery, appreciate assistance. Preoperative risk: RCRI score 0 #. Mixed hyperlipidemia: On statin #. Gastroesophageal reflux disease: On PPI #. Insomnia: On zolpidem p.r.n. DVT prophylaxis: Mechanical Full Code Admit as inpatient and will require two night minimum hospital stay for surgical management of femur fracture (as above), which is not possible in a lesser acute setting. Quality Stroke Does the patient have a stroke diagnosis?: No VTE Prior VTE?: No VTE Risk Level:: Medical - moderate - high VTE Device Contraindication: N/A - Device Ordered VTE Drug Contraindication: Treatment Not Indicated
--- NOTE | 2024-04-21 16:48 | P.CONOP_ITS ---
History of Present Illness HPI Consult date: 04/21/24 <BARBRA Prado - Last Filed: 04/21/24 17:20> Chief complaint: Fall <BARBRA Prado - Last Filed: 04/21/24 17:20> Narrative: This 73-year-old female who presents to the emergency department after falling onto her right knee the patient reports that the rubber sole on her shoe caught on the floor, and she fell directly onto her right patella and knee. Patient reports excruciating pain in the right knee and distal femur immediately following the fall, and then she has been unable to move the right lower extremity since this time due to pain. While in the ED, CT scan of both the right knee and right femur were obtained, revealing a minimally displaced right patella fracture, along with a nondisplaced, intra-articular, longitudinal fracture of the distal femur. Right now, patient reports 10/10 pain in the right knee and distal thigh, and reports that she has been unable to extend the actively since fall. <BARBAR Prado - Last Filed: 04/21/24 17:20> PMFSH Past Medical History Medical History: Medical History Insomnia Mixed hyperlipidemia Gastroesophageal reflux disease <BARBRA Prado - Last Filed: 04/21/24 17:20> Social History Social History: Social History Patient Tobacco Use Status: Former Tobacco user Advance Directives Date on File: 04/22/24 <BARBRA Prado - Last Filed: 04/21/24 17:20> Meds Allergies/Adverse reactions: Allergies Allergy/AdvReac Type Severity Reaction Status Date / Time No Known Allergies Allergy Verified 04/21/24 12:08 <BARBRA Prado - Last Filed: 04/21/24 17:20> Active Medications: Current Medications Acetaminophen (Acetaminophen 325 Mg Tablet) 650 mg PO Q6H PRN PRN Reason: Pain, Mild (Pain Scale 1-3), fever or headache Calcium Carbonate (Calcium Carbonate 750 Mg Tab.Chew) 750 mg PO Q4H PRN PRN Reason: Heartburn Magnesium Hydroxide (Milk Of Magnesia 30 Ml Oral.Susp) 30 ml PO DAILY PRN PRN Reason: Constipation Melatonin (Melatonin 3 Mg Tablet) 6 mg PO BEDTIME PRN PRN Reason: Insomnia Morphine Sulfate (Morphine Sulfate 4 Mg/Ml Cartridge) 4 mg IVPUSH Q4H PRN; Protocol PRN Reason: Pain, Severe (Pain Scale 7-10) Ondansetron HCl (Ondansetron Hcl 4 Mg/2 Ml Vial) 4 mg IVPUSH Q8H PRN PRN Reason: Nausea and Vomiting Sodium Chloride (0.9 % Sodium Chloride Flush 3 Ml Syringe) [facility] <BARBRA Prado - Last Filed: 04/21/24 17:20> Home medications: Home Medications ?Medication ?Instructions ?Recorded ?Confirmed ?Last Taken ?Type omeprazole 20 mg capsule,delayed 20 mg PO BID 04/21/24 04/21/24 04/21/24 History release simvastatin 20 mg tablet 20 mg PO BEDTIME 04/21/24 04/21/24 04/21/24 History zolpidem 5 mg tablet 5 mg PO BEDTIME PRN Sleep 04/21/24 04/21/24 Unknown History <BARBRA Prado - Last Filed: 04/21/24 17:20> Physical Exam 2 Vital Signs: Vital Signs: Last Vital Signs Temp 98.2 F 04/21/24 14:02 Pulse 59 04/21/24 14:02 Resp 14 04/21/24 14:02 BP 133/62 04/21/24 14:02 Pulse Ox 98 04/21/24 14:02 O2 Del Method Room Air 04/21/24 14:02 BMI result Body Mass Index 24.8 <BARBRA Prado - Last Filed: 04/21/24 17:20> Extrem: Other: On inspection, significant effusion of the right knee noted. No erythema or ecchymosis noted No lacerations or abrasions noted Patient is very tender to gentle palpation over the right distal femur. No significant tenderness to gentle palpation of the patella. No tenderness to palpation of the proximal femur or hip. Sensation to the distal right lower extremity full and intact, patient is able to move toes <BARBRA Prado - Last Filed: 04/21/24 17:20> Results Labs Result Diagrams: 04/22/24 05:11 04/22/24 05:11 <BARBRA Prado Last Filed: 04/21/24 17:20> Labs: All other labs normal. <BrianBARBRA Cortes Last Filed: 04/21/24 17:20> Diagnostic results Knee CT: image reviewed (CT scans of the right knee and right femur reveal minimally displaced fracture of the lateral right patella, as well as nondisplaced, intra-articular, longitudinal fracture of the distal right femur) <BARBRA Prado Last Filed: 04/21/24 17:20> Assessment and Plan (1) Fracture, patella: Qualifiers: Encounter type: initial encounter Fracture morphology: o ther fracture Fracture type: closed Laterality: right Qualified Code(s): S 82.091A - Other fracture of right patella, initial encounter for closed fracture <BARBRA Prado Last Filed: 04/21/24 17:20> Status: Acute <BrianBARBRA Cortes Last Filed: 04/21/24 17:20> (2) Femur fracture: Qualifiers: Encounter type: initial encounter Femur location: distal, unspecified portion Fracture morphology: unspecified fracture morphology F racture type: closed Laterality: right Qualified Code(s): S72.401A - Unspecified fracture of lower end of right femur, initial encounter for closed fracture <BARBRA Prado Last Filed: 04/21/24 17:20> Status: Acute <BARBRA Prado Last Filed: 04/21/24 17:20> After consultation and review with Dr. Perez, a collaborative treatment plan was formed: Patient will be admitted to medicine for evaluation and monitoring Plan is to proceed with surgical treatment tomorrow Patient will be NPO starting at midnight The risks and benefits of operative treatment were discussed with the patient and the patient wishes to proceed with surgery. These risks include, but are not limited to, risk of damage to blood vessels, nerves, tendons, infection, recurrence, incomplete relief of preoperative symptoms, persistent pain, possible need for further surgery, and the risks associated with regional blocks and/or anesthesia. Plan is to take the patient to the operating room tomorrow for the following procedures: 1. Right retrograde IM nail with possible ORIF of right patella Patient denies diabetes, blood thinners, asthma, heart issues, lung issues, kidney issues, or current smoking. Patient was placed in a right leg immobilizer for comfort <BARBRA Prado - Last Filed: 04/21/24 17:20> After consultation and review with Dr. Perez, a collaborative treatment plan was formed: Patient will be admitted to medicine for evaluation and monitoring Plan is to proceed with surgical treatment tomorrow Patient will be NPO starting at midnight The risks and benefits of operative treatment were discussed with the patient and the patient wishes to proceed with surgery. These risks include, but are not limited to, risk of damage to blood vessels, nerves, tendons, infection, recurrence, incomplete relief of preoperative symptoms, persistent pain, possible need for further surgery, and the risks associated with regional blocks and/or anesthesia. Plan is to take the patient to the operating room tomorrow for the following procedures: 1. Right retrograde IM nail with possible ORIF of right patella Patient denies diabetes, blood thinners, asthma, heart issues, lung issues, kidney issues, or current smoking. Patient was placed in a right leg immobilizer for comfort Statement: I, Neel Perez MD, saw and evaluated this patient. I completed the assessment and plan in its entirety. The patient visit totaled 25 min, 15 of which I spent directly counseling the patient. I discussed the risks benefits and alternatives including but not limited to the risk of pain, infection, stiffness, fracture need for further surgery as well as potential medical complications such as blood clots, pulmonary embolism and cardiac complications. <Neel Perez MD - Last Filed: 04/22/24 16:03> Procedures Date of Service Date of Service: 04/21/24 <BARBRA Prado - Last Filed: 04/21/24 17:20> 04/22/24 <Neel Perez MD - Last Filed: 04/22/24 16:03>
--- NOTE | 2024-04-21 16:53 | PHA.MEDREC ---
Pharmacy Consult ? Medication Reconciliation Pharmacy has completed the medication reconciliation. Spoke to patient to confirm med list.
[2024-04-21 17:32] LABS: MANUAL DIFF FLAG NO
[2024-04-21 17:35] LABS: Basophils Percent Auto 0.2 % (0-2); Eosinophils Percent Auto 0.2 % (0-4); Hematocrit 37.8 % (37.0-47.0); Hemoglobin 13.2 g/dl (12.0-16.0); Imm Gran Abs Auto 0.04 X10*3/uL (0.00-0.03); Imm Gran Pct Auto 0.4 % (0.0-0.4); Lymphocytes Absolute Auto 1.2 X10*3/uL (1.2-4.9); Lymphocytes Percent Auto 11.8 % (20-40); Mean Corpuscular HGB Conc 34.9 g/dl (31.0-35.0); Mean Corpuscular Hemoglobin 29.9 pg (27.0-33.0); Mean Corpuscular Volume 85.5 fL (80.0-98.0); Mean Platelet Volume 9.3 fL (9.4-12.3); Monocytes Absolute Auto 0.6 X10*3/uL (0.1-1.2); Monocytes Percent Auto 5.8 % (2-11); Neutrophils Absolute Auto 8.5 x10*3/uL (2.0-8.3); Neutrophils Percent Auto 81.6 % (45-73); Platelet Count 241 X10*3/uL (160-400); Red Blood Count 4.42 X10*6/uL (4.20-5.50); Red Cell Distribution Width 11.8 % (11.0-16.0); White Blood Count 10.5 X10*3/uL (4.8-10.8)
[2024-04-21 17:46] LABS: Alanine Aminotransferase 17 U/L (0-31); Albumin Level 4.3 g/dL (3.5-5.0); Alkaline Phosphatase 61 U/L (39-117); Anion Gap 11 (12-20); Aspartate Amino Transferase 25 U/L (5-31); Bilirubin Total 0.5 mg/dL (0.0-1.0); Blood Urea Nitrogen 13 mg/dL (9-16); Calcium 9.5 mg/dL (8.4-10.2); Carbon Dioxide 26 mmol/L (22-29); Chloride 101 mmol/L (96-108); Creatinine Clr Calc Pharmacy 66.9; Estimated Glomerular Filt Rate > 60; Glucose Random 110 mg/dL (60-115); Potassium 3.9 mmol/L (3.3-5.1); Sodium 134 mmol/L (135-145); Total Protein 6.7 g/dL (6.5-8.0)
[2024-04-21 18:01] LABS: INTERNATIONAL NORM RATIO 0.9 (0.9-1.1); Prothrombin Time 10.6 SEC (11.1-13.3)
[2024-04-21 18:04] LABS: Partial Thromboplastin Time 28.6 SEC (26.0-36.8)
[2024-04-21 18:31] VITALS: BP 134/58; PULSE 66; RESP 16; TEMP 36.7; O2SAT 99
[2024-04-21] MEDS: Atorvastatin Calcium 10 MG TABLET PO (19:59)
[2024-04-21] MEDS: Omeprazole 20 MG CAPSULE.DR PO (19:59)
--- NOTE | 2024-04-21 21:13 | PC.NURSE ---
Addendum entered by Leticia Cheema 04/21/24 21:14: per MD freeman only q8h. prn compazine ordered. pt states she will try crackers first. Original Note: pt reports she is nauseous however prn lydia not due until 2343, notified. prn changed to q6-q8h pt reports she will wait until 2143. requests crackers at this time as she believes it will help.
[2024-04-21 21:48] VITALS: BP 126/63; PULSE 66; RESP 14; TEMP 36.9; O2SAT 96
[2024-04-21] MEDS: Prochlorperazine Edisylate 10 MG/2 ML VIAL 5 MG IVPUSH (22:00)
[2024-04-21 23:33] VITALS: BP 126/64; PULSE 72; RESP 16; TEMP 36.9; O2SAT 97
[2024-04-22] VITALS (12 sets, daily range): BP systolic 104–125; BP diastolic 50–58; PULSE 72–106; RESP 14–18; TEMP 36.1–36.9; O2SAT 94–100; BMI 24.8
[2024-04-22] MEDS: Morphine Sulfate 4 MG/ML CARTRIDGE IVPUSH ×3 (00:05→08:13)
[2024-04-22] MEDS: 0.9 % Sodium Chloride Flush 3 ML SYRINGE IVFLUSH ×3 (00:09→19:56)
[2024-04-22] MEDS: Omeprazole 20 MG CAPSULE.DR PO ×2 (05:30→17:37)
[2024-04-22 05:33] LABS: MANUAL DIFF FLAG NO
[2024-04-22 05:37] LABS: Basophils Percent Auto 0.1 % (0-2); Eosinophils Absolute Auto 0.1 X10*3/uL (0.0-0.4); Eosinophils Percent Auto 0.6 % (0-4); Hematocrit 38.5 % (37.0-47.0); Hemoglobin 13.4 g/dl (12.0-16.0); Imm Gran Abs Auto 0.02 X10*3/uL (0.00-0.03); Imm Gran Pct Auto 0.3 % (0.0-0.4); Lymphocytes Absolute Auto 1.4 X10*3/uL (1.2-4.9); Lymphocytes Percent Auto 17.4 % (20-40); Mean Corpuscular HGB Conc 34.8 g/dl (31.0-35.0); Mean Corpuscular Hemoglobin 30.1 pg (27.0-33.0); Mean Corpuscular Volume 86.5 fL (80.0-98.0); Mean Platelet Volume 9.2 fL (9.4-12.3); Monocytes Absolute Auto 0.7 X10*3/uL (0.1-1.2); Monocytes Percent Auto 9.5 % (2-11); Neutrophils Absolute Auto 5.6 x10*3/uL (2.0-8.3); Neutrophils Percent Auto 72.1 % (45-73); Platelet Count 249 X10*3/uL (160-400); Red Blood Count 4.45 X10*6/uL (4.20-5.50); Red Cell Distribution Width 11.9 % (11.0-16.0); White Blood Count 7.8 X10*3/uL (4.8-10.8)
[2024-04-22 05:50] LABS: Anion Gap 12 (12-20); Blood Urea Nitrogen 9 mg/dL (9-16); Calcium 9.5 mg/dL (8.4-10.2); Carbon Dioxide 26 mmol/L (22-29); Chloride 104 mmol/L (96-108); Creatinine Clr Calc Pharmacy 67.9; Estimated Glomerular Filt Rate > 60; Glucose Random 115 mg/dL (60-115); Potassium 3.9 mmol/L (3.3-5.1); Sodium 138 mmol/L (135-145)
--- NOTE | 2024-04-22 06:14 | MHC.EDTECH ---
Patient has an extra fitted sheet underneath her bottom ,we have been trying to remove it since yesterday ,But Patient said she is in alot of Pain Does not want to be moved ,RN aware .Vitals taken ,Patient watching Television ,Call romo within Patient reach .
[2024-04-22] MEDS: ondansetron HCL 4 MG/2 ML VIAL IVPUSH (08:12)
--- NOTE | 2024-04-22 08:17 | PC.NURSE ---
Pt medicated for pain per request. Pt is an add on for surgery later today, verbalized understanding. Pt denied any needs or concerns at this time.
--- NOTE | 2024-04-22 09:12 | PC.NURSE ---
Report given to short stay RN Mich, plan to pick pt up at 12pm.
--- NOTE | 2024-04-22 10:55 | HO.PM.IMPN ---
Subjective Subjective Date of Service: 04/22/24 Interval History: No acute nursing events overnight. Plan for orthopedic surgical intervention today. Pain well controlled Constitutional Constitutional: Reports no additional constitutional complaints Cardiovascular Cardiovascular: Reports no additional cardiovascular complaints Respiratory Respiratory: Reports no additional respiratory complaints Gastrointestinal Gastrointestinal: Reports no additional gastrointestinal complaints Musculoskeletal Musculoskeletal: Reports arthralgias and Reports joint swelling Physical Exam Vital Signs: Vital Signs: Last Vital Signs Temp 97.9 F 04/22/24 08:13 Pulse 72 04/22/24 08:13 Resp 16 04/22/24 08:13 BP 114/58 L 04/22/24 08:13 Pulse Ox 96 04/22/24 08:13 O2 Del Method Room Air 04/22/24 08:13 BMI result Body Mass Index 24.8 Const: Other: Middle-aged female lying in bed in no distress Neck supple, no JVD Regular rate and rhythm, S1-S2 heard Regular breath sounds bilaterally, no wheezing or crackles appreciated Abdomen soft nontender, no guarding, no rigidity Patient is awake, alert and oriented to self, place, time and person ; no focal motor deficit Psych: Normal mood Right knee swelling seen, limited motion of right lower extremity due to pain Objective Data Active Medications Acetaminophen (Acetaminophen 325 Mg Tablet) 650 mg PO Q6H PRN PRN Reason: Pain, Mild (Pain Scale 1-3), fever or headache Atorvastatin Calcium (Atorvastatin Calcium 10 Mg Tablet) 10 mg PO BEDTIME [facility] Last Admin: 04/21/24 19:59 Dose: 10 mg Documented By: SHAI Calcium Carbonate (Calcium Carbonate 750 Mg Tab.Chew) 750 mg PO Q4H PRN PRN Reason: Heartburn Magnesium Hydroxide (Milk Of Magnesia 30 Ml Oral.Susp) 30 ml PO DAILY PRN PRN Reason: Constipation Melatonin (Melatonin 3 Mg Tablet) 6 mg PO BEDTIME PRN PRN Reason: Insomnia Morphine Sulfate (Morphine Sulfate 4 Mg/Ml Cartridge) 4 mg IVPUSH Q4H PRN; Protocol PRN Reason: Pain, Severe (Pain Scale 7-10) Last Admin: 04/22/24 08:13 Dose: 4 mg Documented By: TESHA Omeprazole (Omeprazole 20 Mg Capsule.Dr) 20 mg PO BID@0630,6650 [facility] Last Admin: 04/22/24 05:30 Dose: 20 mg Documented By: TIMOTEO Ondansetron HCl (Ondansetron Hcl 4 Mg/2 Ml Vial) 4 mg IVPUSH Q8H PRN PRN Reason: Nausea and Vomiting Last Admin: 04/22/24 08:12 Dose: 4 mg Documented By: TESHA Prochlorperazine Edisylate (Prochlorperazine Edisylate 10 Mg/2 Ml Vial) 5 mg IVPUSH Q6H PRN PRN Reason: Nausea and Vomiting Last Admin: 04/21/24 22:00 Dose: 5 mg Documented By: SHAI Sodium Chloride (0.9 % Sodium Chloride Flush 3 Ml Syringe) 3 ml IVFLUSH QSHIFT [facility] Last Admin: 04/22/24 08:09 Dose: 3 ml Documented By: TESHA Zolpidem Tartrate (Zolpidem Tartrate 5 Mg Tablet) 5 mg PO BEDTIME PRN PRN Reason: Sleep Labs 04/22/24 05:11 04/22/24 05:11 Labs: Laboratory Results - last 24 hr 04/21/24 04/22/24 17:27 05:11 MCV 85.5 86.5 MCH 29.9 30.1 MCHC 34.9 34.8 RDW 11.8 11.9 Plt Count 241 249 MPV 9.3 L 9.2 L Immature Gran % (Auto) 0.4 0.3 Neut % (Auto) 81.6 H 72.1 Lymph % (Auto) 11.8 L 17.4 L [place] % (Auto) 5.8 9.5 Eos % (Auto) 0.2 0.6 Baso % (Auto) 0.2 0.1 Lymph # (Auto) 1.2 1.4 [place] # (Auto) 0.6 0.7 Eos # (Auto) 0.0 0.1 Baso # (Auto) 0.0 0.0 Abs Immat Gran (auto) 0.04 H 0.02 Absolute Neuts (auto) 8.5 H 5.6 Absolute Nucleated RBC 0.000 0.000 Nucleated RBC % (auto) 0.0 0.0 PT 10.6 L INR 0.9 APTT 28.6 Anion Gap 11 L 12 Estim Creat Clear Calc 66.9 67.9 Estimated GFR > 60 > 60 Random Glucose 110 115 Calcium 9.5 D 9.5 Total Bilirubin 0.5 AST 25 ALT 17 Alkaline Phosphatase 61 Total Protein 6.7 Albumin 4.3 Assessment and Plan (1) Fracture, patella: Status: Acute (2) Femur fracture: Status: Acute Plan This is a 73-year-old female with pertinent history of gastroesophageal reflux disease, insomnia, mixed hyperlipidemia who presents to the emergency department for evaluation after a fall. #. Right femur and patellar fracture due to mechanical fall: Continue IV opioids p.r.n. for analgesia. Plan for orthopedic surgical intervention today. Preoperative risk: RCRI score 0 #. Mixed hyperlipidemia: On statin #. Gastroesophageal reflux disease: On PPI #. Insomnia: On zolpidem p.r.n. DVT prophylaxis: Mechanical Full Code Reason for continued hospitalization: surgical management of femur fracture (as above), which is not possible in a lesser acute setting. Quality Stroke Does the patient have a stroke diagnosis?: No VTE Prior VTE?: No VTE Risk Level:: Medical - moderate - high VTE Device Contraindication: N/A - Device Ordered VTE Drug Contraindication: Treatment Not Indicated
--- NOTE | 2024-04-22 11:53 | PC.NURSE ---
Pt transported to [facility] by tech.
[2024-04-22] MEDS: Morphine Sulfate 2 MG/ML CARTRIDGE 4 MG IVPUSH ×2 (12:30→23:31)
--- NOTE | 2024-04-22 13:03 | HO.ANESPROP2 ---
HPI - Anesthesia Eval Consult details Narrative: for right hip and patellar PMFSH Active Problems Active Problems: All Active Problems Insomnia (Acute) Mixed hyperlipidemia (Acute) Gastroesophageal reflux disease (Acute) Fracture, patella (Acute) Femur fracture (Acute) Fall (Acute) Past Medical History Medical History Insomnia Mixed hyperlipidemia Gastroesophageal reflux disease Family History Family history of problems with anesthesia: No Surgical History History of Problems with Anesthesia: No Social History Social History Patient Tobacco Use Status: Former Tobacco user Advance Directives Date on File: 04/22/24 Meds Allergies Allergy/AdvReac Type Severity Reaction Status Date / Time No Known Allergies Allergy Verified 04/21/24 12:08 Active Medications: Current Medications Acetaminophen (Acetaminophen 325 Mg Tablet) 650 mg PO Q6H PRN PRN Reason: Pain, Mild (Pain Scale 1-3), fever or headache Atorvastatin Calcium (Atorvastatin Calcium 10 Mg Tablet) 10 mg PO BEDTIME [facility] Last Admin: 04/21/24 19:59 Dose: 10 mg Calcium Carbonate (Calcium Carbonate 750 Mg Tab.Chew) 750 mg PO Q4H PRN PRN Reason: Heartburn Magnesium Hydroxide (Milk Of Magnesia 30 Ml Oral.Susp) 30 ml PO DAILY PRN PRN Reason: Constipation Melatonin (Melatonin 3 Mg Tablet) 6 mg PO BEDTIME PRN PRN Reason: Insomnia Morphine Sulfate (Morphine Sulfate 2 Mg/Ml Cartridge) 4 mg IVPUSH Q4H PRN; Protocol PRN Reason: Pain, Severe (Pain Scale 7-10) Last Admin: 04/22/24 12:30 Dose: 4 mg Omeprazole (Omeprazole 20 Mg Capsule.Dr) 20 mg PO BID@0630,1830 [facility] Last Admin: 04/22/24 05:30 Dose: 20 mg Ondansetron HCl (Ondansetron Hcl 4 Mg/2 Ml Vial) 4 mg IVPUSH Q8H PRN PRN Reason: Nausea and Vomiting Last Admin: 04/22/24 08:12 Dose: 4 mg Prochlorperazine Edisylate (Prochlorperazine Edisylate 10 Mg/2 Ml Vial) 5 mg IVPUSH Q6H PRN PRN Reason: Nausea and Vomiting Last Admin: 04/21/24 22:00 Dose: 5 mg Sodium Chloride (0.9 % Sodium Chloride Flush 3 Ml Syringe) 3 ml IVFLUSH QSHIFT [facility] Last Admin: 04/22/24 08:09 Dose: 3 ml Zolpidem Tartrate (Zolpidem Tartrate 5 Mg Tablet) 5 mg PO BEDTIME PRN PRN Reason: Sleep Home Medications ?Medication ?Instructions ?Recorded ?Confirmed ?Last Taken ?Type omeprazole 20 mg capsule,delayed 20 mg PO BID 04/21/24 04/21/24 04/21/24 History release simvastatin 20 mg tablet 20 mg PO BEDTIME 04/21/24 04/21/24 04/21/24 History zolpidem 5 mg tablet 5 mg PO BEDTIME PRN Sleep 04/21/24 04/21/24 Unknown History Exam Height,Weight and Vital Signs: Height 5 ft 6.5 in Weight 70.8 kg Last Vital Signs Temp 97.9 F 04/22/24 12:04 Pulse 72 04/22/24 12:04 Resp 18 04/22/24 12:04 BP 113/51 L 04/22/24 12:04 Pulse Ox 97 04/22/24 12:04 O2 Del Method Room Air 04/22/24 12:04 Pertinent Lab Results Pertinent Lab Results: Laboratory Tests 04/21/24 04/22/24 17:27 05:11 WBC 10.5 7.8 RBC 4.42 4.45 Hgb 13.2 13.4 Hct 37.8 38.5 MCV 85.5 86.5 MCH 29.9 30.1 MCHC 34.9 34.8 RDW 11.8 11.9 Plt Count 241 249 MPV 9.3 L 9.2 L Immature Gran % (Auto) 0.4 0.3 Neut % (Auto) 81.6 H 72.1 Lymph % (Auto) 11.8 L 17.4 L [place] % (Auto) 5.8 9.5 Eos % (Auto) 0.2 0.6 Baso % (Auto) 0.2 0.1 Lymph # (Auto) 1.2 1.4 [place] # (Auto) 0.6 0.7 Eos # (Auto) 0.0 0.1 Baso # (Auto) 0.0 0.0 Abs Immat Gran (auto) 0.04 H 0.02 Absolute Neuts (auto) 8.5 H 5.6 Absolute Nucleated RBC 0.000 0.000 Nucleated RBC % (auto) 0.0 0.0 PT 10.6 L INR 0.9 APTT 28.6 Sodium 134 L 138 Potassium 3.9 3.9 Chloride 101 104 Carbon Dioxide 26 26 Anion Gap 11 L 12 BUN 13 9 Creatinine 0.69 0.68 Estim Creat Clear Calc 66.9 67.9 Estimated GFR > 60 > 60 Random Glucose 110 115 Calcium 9.5 D 9.5 Total Bilirubin 0.5 AST 25 ALT 17 Alkaline Phosphatase 61 Total Protein 6.7 Albumin 4.3 Airway Mallampati Class: II TM Dist: >3cm Neck ROM: Full Heart: rrr Lungs: cta Assessment and Plan Assessment Anesthesia Assessment: Anesthesia Plan Discussed Final Anesthetic Review Family History of Problems with Anesthesia: No History of Problems with Anesthesia: No NPO: Yes ASA Class: II Final Preanesthetic Review: No Changes in Pt Med Stat, Meds/Allgs Chart Reviewed, Consent Obtained/Reviewed and Anes Risks/Benef Reviewed Patient Risk: Low Procedure Risk: Intermediate Anesthetic Plan Anesthetic Plan: GA Disposition: Standard PACU
--- NOTE | 2024-04-22 16:03 | P.BOP_ITS ---
Brief Operative Note Date of Service: 04/22/24 Pre-op diagnosis: right femur fracture right patella fracture Post-op diagnosis: same Procedure: IMN right femur ORIF right patella Implants: Patrice: [id number] imn with 3 distal and 1 proxiomal interlocking screw 3.5 x 40 cortical lag screw Surgeon: Neel Perez MD Anesthesia: GLMA, regional and local Was an Business Services Intern used for this Procedure?: No Estimated blood loss (mL): 200 IV fluids (mL): 1,000 Pathology: none sent Condition: stable Disposition: PACU
[2024-04-22] MEDS: Atorvastatin Calcium 10 MG TABLET PO (19:47)
[2024-04-22] MEDS: ceFAZolin Sodium/Dextrose,Iso 2 GM/50 ML PIGGYBACK IV (19:58)
[2024-04-23] VITALS (7 sets, daily range): BP systolic 112–132; BP diastolic 54–76; PULSE 71–86; RESP 16–18; TEMP 36–36.6; O2SAT 96–98
[2024-04-23] MEDS: Omeprazole 20 MG CAPSULE.DR PO ×2 (05:32→17:30)
[2024-04-23 07:08] LABS: MANUAL DIFF FLAG NO
[2024-04-23 07:18] LABS: Basophils Percent Auto 0.2 % (0-2); Hematocrit 34.4 % (37.0-47.0); Hemoglobin 11.7 g/dl (12.0-16.0); Imm Gran Abs Auto 0.05 X10*3/uL (0.00-0.03); Imm Gran Pct Auto 0.4 % (0.0-0.4); Lymphocytes Percent Auto 8.6 % (20-40); Mean Corpuscular Hemoglobin 30.1 pg (27.0-33.0); Mean Corpuscular Volume 88.4 fL (80.0-98.0); Mean Platelet Volume 9.4 fL (9.4-12.3); Monocytes Absolute Auto 0.8 X10*3/uL (0.1-1.2); Monocytes Percent Auto 6.9 % (2-11); Neutrophils Absolute Auto 9.9 x10*3/uL (2.0-8.3); Neutrophils Percent Auto 83.9 % (45-73); Platelet Count 257 X10*3/uL (160-400); Red Blood Count 3.89 X10*6/uL (4.20-5.50); Red Cell Distribution Width 12.1 % (11.0-16.0); White Blood Count 11.9 X10*3/uL (4.8-10.8)
[2024-04-23] MEDS: 0.9 % Sodium Chloride Flush 3 ML SYRINGE IVFLUSH ×3 (07:44→19:48)
[2024-04-23] MEDS: Morphine Sulfate 2 MG/ML CARTRIDGE 4 MG IVPUSH ×3 (07:45→16:26)
[2024-04-23 07:46] LABS: Anion Gap 12 (12-20); Blood Urea Nitrogen 11 mg/dL (9-16); Carbon Dioxide 23 mmol/L (22-29); Chloride 102 mmol/L (96-108); Creatinine Clr Calc Pharmacy 73.3; Estimated Glomerular Filt Rate > 60; Glucose Random 132 mg/dL (60-115); Sodium 133 mmol/L (135-145)
[2024-04-23] MEDS: Enoxaparin Sodium 40 MG/0.4 ML SYRINGE SUBCUT (10:38)
--- NOTE | 2024-04-23 11:03 | PM.PNORT ---
Subjective Subjective Date of Service: 04/23/24 Interval history: Patient is a 73-year-old female who is admitted for evaluation of right femur fracture and right patella fracture status post right retrograde IM nail placement and right patella ORIF, DOS 04/22/[address] Perez. Today, the patient reports she is feeling well, and has felt far better postoperatively than she did preoperatively. Patient expresses that she has not taken much of her pain medication, and she feels slightly uncomfortable doing so. Physical Exam Vital Signs: Vital Signs: Last Vital Signs Temp 97.0 F 04/23/24 07:58 Pulse 71 04/23/24 07:58 Resp 18 04/23/24 07:58 BP 119/55 L 04/23/24 07:58 Pulse Ox 96 04/23/24 07:58 O2 Del Method Room Air 04/23/24 07:58 O2 Flow Rate 2 04/23/24 03:34 BMI result Body Mass Index 24.8 Extrem: Other: Incision sites clean and dry, Dressings in place, not saturated No erythema, ecchymosis, evidence of infection Procedures Date of Service Date of Service: 04/23/24 Progress Note: A&P Assessment and plan (1) Femur fracture: Status: Acute (2) Fracture, patella: Status: Acute Plan 1. Femur fracture, right, status post retrograde IM nail placement 2. Right patella fracture, status post ORIF DOS 04/22/2024 Patient is recovering well postoperatively Patient is educated about the typical postoperative course Patient is instructed that she can bear weight on her right lower extremity as tolerated Gentle range of motion can also be performed as tolerated Patient will have further evaluation by physical therapy Patient inquires she will be able to be discharged home rather than to a rehab facility, and patient is educated that this will depend on physical therapy evaluation. Time Spent With Patient Time: Total time managing care of this patient today ____ minutes. Quality Stroke Does the patient have a stroke diagnosis?: No VTE Prior VTE?: No VTE Risk Level:: Medical - moderate - high VTE Device Contraindication: N/A - Device Ordered VTE Drug Contraindication: Treatment Not Indicated
[2024-04-23] MEDS: ondansetron HCL 4 MG/2 ML VIAL IVPUSH (12:26)
--- NOTE | 2024-04-23 12:59 | HO.POSTANES ---
Post Anesthesia Evaluation Post Anesthesia Evaluation Date of Service: 04/22/24 Vital Signs: Vital Signs Temp Pulse Resp BP Pulse Ox O2 Del Method O2 Flow Rate 04/23/24 12:26 71 119/55 L 96 04/23/24 12:00 97.0 F 86 18 127/57 L 98 Room Air 04/23/24 07:58 97.0 F 71 18 119/55 L 96 Room Air 04/23/24 03:34 96.8 F 80 16 112/54 L 97 Nasal Cannula 2 Anesthesia: General Mental Status: Awake Pain Control: Satisfactory Nausea/Vomiting: None Hydration: Adequate Anesthesia-Related Issues: No Anes. Related Issues
--- NOTE | 2024-04-23 14:59 | MHC.CM.PN ---
IMM DELIVERED. PATIENT LIVES IN A 1 STORY HOME ALONE. FUNCTIONALLY INDP [employer]. PCP DIEGO KESSLER MD [facility] PATIENT REPORTS SHE HAS AN HCP NAMING HER SISTER [facility]. DP: PT REC HOME W/ SERVICES. PATIENT PREFERS [facility]. REFERRAL SENT VIA [facility]. PATIENT'S SISTER IS COMING [place] FROM [place] TO STAY W/ PATIENT TO PROVIDE ASSISTANCE. PATIENTS [facility] DOOR AND WILL ALSO PROVIDE SUPPORT. SISTER TO TRANSPORT HOME. CM WILL CONTINUE TO FOLLOW.
--- NOTE | 2024-04-23 15:02 | HO.PM.IMPN ---
Subjective Subjective Date of Service: 04/23/24 Interval History: No acute issues overnight. Pain control adequate Review of Systems Denies chest pain Denies shortness of breath Denies nausea vomiting diarrhea Denies fever chills Physical Exam Vital Signs: Vital Signs: Last Vital Signs Temp 97.0 F 04/23/24 12:00 Pulse 71 04/23/24 12:26 Resp 18 04/23/24 12:00 BP 119/55 L 04/23/24 12:26 Pulse Ox 96 04/23/24 12:26 O2 Del Method Room Air 04/23/24 12:00 O2 Flow Rate 2 04/23/24 03:34 BMI result Body Mass Index 24.8 Const: Other: Awake alert no acute distress Resp: Other: Clear to auscultation bilaterally no rales rhonchi or wheezes Cardio: Other: No S4; positive S1-S2; no S3 murmurs rubs gallops GI: Other: Soft nontender nondistended normoactive bowel sounds Extrem: Other: No edema bilaterally Objective Data Active Medications Acetaminophen (Acetaminophen 325 Mg Tablet) 650 mg PO Q6H PRN PRN Reason: Pain, Mild (Pain Scale 1-3), fever or headache Atorvastatin Calcium (Atorvastatin Calcium 10 Mg Tablet) 10 mg PO BEDTIME [facility] Last Admin: 04/22/24 19:47 Dose: 10 mg Documented By: NISH Calcium Carbonate (Calcium Carbonate 750 Mg Tab.Chew) 750 mg PO Q4H PRN PRN Reason: Heartburn Enoxaparin Sodium (Enoxaparin Sodium 40 Mg/0.4 Ml Syringe) 40 mg SUBCUT Q24H [facility] Last Admin: 04/23/24 10:38 Dose: 40 mg Documented By: ANDREW Magnesium Hydroxide (Milk Of Magnesia 30 Ml Oral.Susp) 30 ml PO DAILY PRN PRN Reason: Constipation Melatonin (Melatonin 3 Mg Tablet) 6 mg PO BEDTIME PRN PRN Reason: Insomnia Morphine Sulfate (Morphine Sulfate 2 Mg/Ml Cartridge) 4 mg IVPUSH Q4H PRN; Protocol PRN Reason: Pain, Severe (Pain Scale 7-10) Last Admin: 04/23/24 12:26 Dose: 4 mg Documented By: ANDREW Omeprazole (Omeprazole 20 Mg Capsule.Dr) 20 mg PO BID@0630,1830 [facility] Last Admin: 04/23/24 05:32 Dose: 20 mg Documented By: NISH Ondansetron HCl (Ondansetron Hcl 4 Mg/2 Ml Vial) 4 mg IVPUSH Q8H PRN PRN Reason: Nausea and Vomiting Last Admin: 04/23/24 12:26 Dose: 4 mg Documented By: ANDREW Prochlorperazine Edisylate (Prochlorperazine Edisylate 10 Mg/2 Ml Vial) 5 mg IVPUSH Q6H PRN PRN Reason: Nausea and Vomiting Last Admin: 04/21/24 22:00 Dose: 5 mg Documented By: SHAI Sodium Chloride (0.9 % Sodium Chloride Flush 3 Ml Syringe) 3 ml IVFLUSH QSHIFT [facility] Last Admin: 04/23/24 07:44 Dose: 3 ml Documented By: ANDREW Zolpidem Tartrate (Zolpidem Tartrate 5 Mg Tablet) 5 mg PO BEDTIME PRN PRN Reason: Sleep Labs 04/23/24 05:39 04/23/24 05:39 Labs: Laboratory Results - last 24 hr 04/23/24 05:39 MCV 88.4 MCH 30.1 MCHC 34.0 RDW 12.1 Plt Count 257 MPV 9.4 Immature Gran % (Auto) 0.4 Neut % (Auto) 83.9 H Lymph % (Auto) 8.6 L [place] % (Auto) 6.9 Eos % (Auto) 0.0 Baso % (Auto) 0.2 Lymph # (Auto) 1.0 L [place] # (Auto) 0.8 Eos # (Auto) 0.0 Baso # (Auto) 0.0 Abs Immat Gran (auto) 0.05 H Absolute Neuts (auto) 9.9 H Absolute Nucleated RBC 0.000 Nucleated RBC % (auto) 0.0 Anion Gap 12 Estim Creat Clear Calc 73.3 Estimated GFR > 60 Random Glucose 132 H Calcium 9.0 Assessment and Plan (1) Femur fracture: Status: Acute Plan This is a 73-year-old female with pertinent history of gastroesophageal reflux disease, insomnia, mixed hyperlipidemia who presents to the emergency department for evaluation after a fall. Status post ORIF right femur doing well 1.Right femur and patellar fracture due to mechanical fall -doing excellent postop -pain control adequate -seen by Physical therapy; likely home in a.m. when assistance at home arise 2.Gastroesophageal reflux disease -stable and well compensated on current therapies DVT prophylaxis: Mechanical Full Code Reason for continued hospitalization: surgical management of femur fracture (as above), which is not possible in a lesser acute setting. Quality Stroke Does the patient have a stroke diagnosis?: No VTE Prior VTE?: No VTE Risk Level:: Medical - moderate - high VTE Device Contraindication: N/A - Device Ordered VTE Drug Contraindication: Treatment Not Indicated
[2024-04-23] MEDS: Atorvastatin Calcium 10 MG TABLET PO (19:48)
[2024-04-24] VITALS (8 sets, daily range): BP systolic 110–127; BP diastolic 52–67; PULSE 54–88; RESP 16–18; TEMP 36–36.6; O2SAT 94–98
[2024-04-24] MEDS: Morphine Sulfate 2 MG/ML CARTRIDGE 4 MG IVPUSH ×4 (00:19→17:01)
[2024-04-24] MEDS: Omeprazole 20 MG CAPSULE.DR PO ×2 (05:32→17:01)
[2024-04-24] MEDS: Enoxaparin Sodium 40 MG/0.4 ML SYRINGE SUBCUT (08:08)
[2024-04-24] MEDS: 0.9 % Sodium Chloride Flush 3 ML SYRINGE IVFLUSH ×3 (08:09→19:53)
[2024-04-24] MEDS: oxyCODONE HCl Immed Release 5 MG TABLET 10 MG PO ×2 (09:58→19:53)
--- NOTE | 2024-04-24 11:03 | P.PNOP_ITS ---
Subjective Subjective Date of Service: 04/24/24 Interval history: Patient is a 73-year-old female who is postop day 2 status post right retrograde IM nail placement and right ORIF of patella. Patient reports that she experienced severe pain overnight, rated 8/10. Patient reports that this began to improve early in the morning, and she was able to get some sleep. Patient reports that she spoke with Dr. Seguar earlier this morning, and then he added additional pain medications for pain. Patient reports that she has been ambulating well, both with PT and on her own. Patient has no other acute concerns at this time. Physical Exam 2 Vital Signs: Vital Signs: Last Vital Signs Temp 97.8 F 04/24/24 07:43 Pulse 85 04/24/24 07:43 Resp 18 04/24/24 07:43 BP 110/55 L 04/24/24 07:43 Pulse Ox 95 04/24/24 07:43 O2 Del Method Room Air 04/24/24 07:43 O2 Flow Rate 2 04/23/24 03:34 BMI result Body Mass Index 24.8 Extrem: Other: Incision sites clean and dry, Dressings in place, not saturated No erythema, ecchymosis, evidence of infection Compartments soft, nontender Patient is able to plantar flex and dorsiflex at the foot Sensation of distal right lower extremity intact Procedures Date of Service Date of Service: 04/24/24 Progress Note: A&P Assessment and plan (1) Femur fracture: Status: Acute (2) Fracture, patella: Status: Acute Plan 1. Femur fracture, right, status post retrograde IM nail placement 2. Right patella fracture, status post ORIF DOS 04/22/2024 Patient is recovering well postoperatively Patient is educated about the typical postoperative course Patient is instructed that she can continue to bear weight on her right lower extremity as tolerated After speaking with Dr. Segura, Tylenol ordered for additional pain management Gentle range of motion can also be performed as tolerated Patient will have further evaluation by physical therapy Patient states that she will be discharged home, likely tomorrow, as her sister is arriving from [place] to help her at approximately midnight tonight. Patient will need 2 week follow-up from DOS in orthopedic office. Time Spent With Patient Time: Total time managing care of this patient today ____ minutes. Quality Stroke Does the patient have a stroke diagnosis?: No VTE Prior VTE?: No VTE Risk Level:: Medical - moderate - high VTE Device Contraindication: N/A - Device Ordered VTE Drug Contraindication: Treatment Not Indicated
--- NOTE | 2024-04-24 12:24 | P.PNIM_ITS ---
Subjective Subjective Date of Service: 04/24/24 Interval History: No acute issues overnight. Ambulating with assist to bathroom; pain control ineffective overnight Review of Systems Denies chest pain Denies shortness of breath Denies nausea vomiting diarrhea Denies fever chills Physical Exam 2 Vital Signs: Vital Signs: Last Vital Signs Temp 97.1 F 04/24/24 11:30 Pulse 85 04/24/24 11:30 Resp 16 04/24/24 11:30 BP 127/67 04/24/24 11:30 Pulse Ox 94 04/24/24 11:30 O2 Del Method Room Air 04/24/24 11:30 O2 Flow Rate 2 04/23/24 03:34 BMI result Body Mass Index 24.8 Const: Other: Awake alert no acute distress Resp: Other: Clear to auscultation bilaterally no rales rhonchi or wheezes Cardio: Other: No S4; positive S1-S2; no S3 murmurs rubs gallops GI: Other: Soft nontender nondistended normoactive bowel sounds Extrem: Other: No edema bilaterally Objective Data Active Medications Acetaminophen (Acetaminophen 325 Mg Tablet) 650 mg PO Q6H PRN PRN Reason: Pain, Mild (Pain Scale 1-3), fever or headache Atorvastatin Calcium (Atorvastatin Calcium 10 Mg Tablet) 10 mg PO BEDTIME [facility] Last Admin: 04/23/24 19:48 Dose: 10 mg Documented By: NISH Calcium Carbonate (Calcium Carbonate 750 Mg Tab.Chew) 750 mg PO Q4H PRN PRN Reason: Heartburn Enoxaparin Sodium (Enoxaparin Sodium 40 Mg/0.4 Ml Syringe) 40 mg SUBCUT Q24H [facility] Last Admin: 04/24/24 08:08 Dose: 40 mg Documented By: CAROLYN Magnesium Hydroxide (Milk Of Magnesia 30 Ml Oral.Susp) 30 ml PO DAILY PRN PRN Reason: Constipation Melatonin (Melatonin 3 Mg Tablet) 6 mg PO BEDTIME PRN PRN Reason: Insomnia Morphine Sulfate (Morphine Sulfate 2 Mg/Ml Cartridge) 4 mg IVPUSH Q4H PRN; Protocol PRN Reason: Pain, Severe (Pain Scale 7-10) Last Admin: 04/24/24 08:11 Dose: 4 mg Documented By: CAROLYN Omeprazole (Omeprazole 20 Mg Capsule.) 20 mg PO BID@0630,1830 [facility] Last Admin: 04/24/24 05:32 Dose: 20 mg Documented By: NISH Ondansetron HCl (Ondansetron Hcl 4 Mg/2 Ml Vial) 4 mg IVPUSH Q8H PRN PRN Reason: Nausea and Vomiting Last Admin: 04/23/24 12:26 Dose: 4 mg Documented By: ANDREW Oxycodone HCl (Oxycodone Hcl Immed Release 5 Mg Tablet) 5 mg PO Q4H PRN PRN Reason: Pain, Moderate(Pain Scale 4-6) Oxycodone HCl (Oxycodone Hcl Immed Release 5 Mg Tablet) 10 mg PO Q4H PRN PRN Reason: Pain, Severe (Pain Scale 7-10) Last Admin: 04/24/24 09:58 Dose: 10 mg Documented By: CAROLYN Prochlorperazine Edisylate (Prochlorperazine Edisylate 10 Mg/2 Ml Vial) 5 mg IVPUSH Q6H PRN PRN Reason: Nausea and Vomiting Last Admin: 04/21/24 22:00 Dose: 5 mg Documented By: SHAI Sodium Chloride (0.9 % Sodium Chloride Flush 3 Ml Syringe) 3 ml IVFLUSH QSHIFT [facility] Last Admin: 04/24/24 08:09 Dose: 3 ml Documented By: CAROLYN Zolpidem Tartrate (Zolpidem Tartrate 5 Mg Tablet) 5 mg PO BEDTIME PRN PRN Reason: Sleep Labs 04/23/24 05:39 04/23/24 05:39 Assessment and Plan (1) Femur fracture: Status: Acute Plan This is a 73-year-old female with pertinent history of gastroesophageal reflux disease, insomnia, mixed hyperlipidemia who presents to the emergency department for evaluation after a fall. Status post ORIF right femur doing well 1.Right femur and patellar fracture due to mechanical fall -doing excellent postop -will add oxycodone 5 mg q.4 hours for moderate pain and oxycodone 10 mg q.4 hours for severe pain. We will keep rescue morphine -seen by Physical therapy; likely home in a.m. when assistance at home arise 2.Gastroesophageal reflux disease -stable and well compensated on current therapies DVT prophylaxis: Mechanical Full Code Reason for continued hospitalization: surgical management of femur fracture (as above), which is not possible in a lesser acute setting. Quality Stroke Does the patient have a stroke diagnosis?: No VTE Prior VTE?: No VTE Risk Level:: Medical - moderate - high VTE Device Contraindication: N/A - Device Ordered VTE Drug Contraindication: Treatment Not Indicated
[2024-04-24] MEDS: Calcium Carbonate 750 MG TAB.CHEW PO (13:18)
[2024-04-24] MEDS: Atorvastatin Calcium 10 MG TABLET PO (19:53)
[2024-04-25] MEDS: oxyCODONE HCl Immed Release 5 MG TABLET 10 MG PO ×3 (05:53→14:14)
[2024-04-25] MEDS: Omeprazole 20 MG CAPSULE.DR PO (05:53)
--- NOTE | 2024-04-25 06:18 | PC.NURSE ---
Pt AOx3, cooperative w/care, pleasant, able to make her needs known. See MAR for prn pain med administration. She utilizes call romo appropriately to be taken to the bathroom. She needs some assistance placing the knee immobilizer, uses walker to ambulate. She stated she has not had much of an appetite since her fall. Call romo within reach, bed alarm on.
[2024-04-25 07:24] VITALS: BP 117/54; PULSE 80; RESP 16; TEMP 36; O2SAT 96
--- NOTE | 2024-04-25 08:21 | PM.PNORT ---
Subjective Subjective Date of Service: 04/25/24 Interval history: Patient is a 73-year-old female who is postop day 3 from right retrograde IM nail placement and right patella ORIF following right patella and femur fractures. Patient reports that she is doing well, and that she did not have to take any pain medication from approximately 20:00 last night until 06:00 this morning. Patient reports the plan is for discharge home later today, as her sister has arrived from [place]. No other acute concerns at this time Physical Exam Vital Signs: Vital Signs: Last Vital Signs Temp 96.8 F 04/25/24 07:24 Pulse 80 04/25/24 07:24 Resp 16 04/25/24 07:24 BP 117/54 L 04/25/24 07:24 Pulse Ox 96 04/25/24 07:24 O2 Del Method Room Air 04/25/24 07:24 O2 Flow Rate 2 04/23/24 03:34 BMI result Body Mass Index 24.8 Extrem: Other: Incision sites clean and dry, Dressings in place, not saturated No erythema, ecchymosis, evidence of infection Compartments soft, nontender Patient is able to plantar flex and dorsiflex at the foot Sensation of distal right lower extremity intact Procedures Date of Service Date of Service: 04/25/24 Progress Note: A&P Assessment and plan (1) Femur fracture: Status: Acute (2) Fracture, patella: Status: Acute Plan 1. Femur fracture, right, status post retrograde IM nail placement 2. Right patella fracture, status post ORIF DOS 04/22/2024 Patient is recovering well postoperatively Patient is educated about the typical postoperative course Patient is instructed that she can continue to bear weight on her right lower extremity as tolerated Gentle range of motion can also be performed as tolerated Patient fitted for ACL brace this morning, with no range of motion restriction Patient states that she will be discharged home, likely today, as her sister arrived from [place] to help her Patient will need 2 week follow-up in orthopedic office. Time Spent With Patient Time: Total time managing care of this patient today ____ minutes. Quality Stroke Does the patient have a stroke diagnosis?: No VTE Prior VTE?: No VTE Risk Level:: Medical - moderate - high VTE Device Contraindication: N/A - Device Ordered VTE Drug Contraindication: Treatment Not Indicated
[2024-04-25] MEDS: 0.9 % Sodium Chloride Flush 3 ML SYRINGE IVFLUSH (09:44)
[2024-04-25] MEDS: ondansetron HCL 4 MG/2 ML VIAL IVPUSH (11:15)
[2024-04-25 11:27] VITALS: BP 117/54; PULSE 80; O2SAT 96
[2024-04-25 12:00] VITALS: BP 132/58; PULSE 88; RESP 18; TEMP 36.1; O2SAT 99
--- NOTE | 2024-04-25 13:44 | P.DS_ITS ---
DS: Providers Provider Date of Service: 04/25/24 Date of admission: 04/21/24 16:08 Date of discharge: 04/25/24 Primary care physician: Unknown Physician Consults: 04/21/24 16:42 Consult to Orthopedics Routine Consulting Provider: [facility] Reason for consultation: Right patellar and femur fracture DS: Diagnosis Discharge Diagnosis (1) Femur fracture: Status: Acute (2) Fracture, patella: Status: Acute DS: Summary Hospital Course Hospital Course: 73-year-old female with pertinent history of gastroesophageal reflux disease, insomnia, mixed hyperlipidemia who presents to the emergency department for evaluation after a fall. Patient states that she was walking out target, she tripped and fell onto her right knee. Did not lose consciousness. No chest pain or palpitations prior to the fall. No jerking movement of extremities. She did not hit her head. Patient has had right knee swelling and limited movem ent of right lower extremity since the fall. No nausea, vomiting, fever, chills, shortness of breath, abdominal pain, changes in urinary or bowel habits. In the emergency department, imaging with nondisplaced intercondylar fracture of the distal femur. Also intra-articular fracture of the lateral patellar facet. Orthopedic surgery was consulted who requested admission. Hospital Course Patient was admitted under the medical service to general medical floor. on 04/22/2024 patient underwent open repair by Orthopedics without issue. Her postoperative course was uncomplicated. She was seen by Physical therapy and did well including stairs. At this point in time she is medically acceptable to discharge to home with script for oxycodone. She will follow up Orthopedics in 2 weeks Time Attestation Discharge Coordination Time (in mins): 35 Quality: Safe Use of Opioids Does Pt have an Active Cancer Diagnosis on the Problem List?: No Quality: Stroke Does the patient have a stroke diagnosis?: No Physical Exam Vital Signs: Vital Signs: Last Vital Signs Temp 96.9 F 04/25/24 12:00 Pulse 88 04/25/24 12:00 Resp 18 04/25/24 12:00 BP 132/58 L 04/25/24 12:00 Pulse Ox 99 04/25/24 12:00 O2 Del Method Room Air 04/25/24 12:00 O2 Flow Rate 2 04/23/24 03:34 BMI result Body Mass Index 24.8 Const: Other: Awake alert no acute distress Resp: Other: Clear to auscultation bilaterally no rales rhonchi or wheezes Cardio: Other: No S4; positive S1-S2; no S3 murmurs rubs gallops GI: Other: Soft nontender nondistended normoactive bowel sounds Extrem: Other: No edema bilaterally Discharge Plan Discharge Anticipated Discharge Date/Time: 04/25/24 13:38 Patient Disposition: Home Health Service Discharge Diagnosis: fractured right femur Referrals: Physician,Unknown J [Primary Care Provider] - 1 Week Discharge Medications: New oxycodone 10 mg tablet 10 mg PO Q6H PRN (Reason: pain) Qty: 20 0RF Rx Instructions: Partial Fill upon patient request. Continued simvastatin 20 mg tablet 20 mg PO BEDTIME omeprazole 20 mg capsule,delayed release(DR/EC) 20 mg PO BID zolpidem 5 mg tablet 5 mg PO BEDTIME PRN (Reason: Sleep) Discharge Orders: Discharge Order (Routine); Ordered 04/25/24 Ordered By: Herrera Segura Diet: Advance to usual diet Activity on Discharge: As tolerated Stand Alone Forms: Patient Portal Discharge page Print Language: [place] Care Plan Goals: resume all medicines as taken prior to hospitalization Health Concerns: utilize oxycodone 10 mg q.6 hours as needed for pain Plan of Treatment: weightbear as tolerated; follow up with Orthopedics 2 weeks as scheduled Assessment: see discharge summary
--- NOTE | 2024-04-25 14:12 | MHC.CM.PN ---
pt dcd hometoday with hvns
--- NOTE | 2024-04-26 13:42 | W.MHC.F2F ---
Service Date Service Date: 04/26/24 Encounter Date of encounter: 04/25/24 Encounter: Acute hospitalization Reasons for Services Signs and symptoms assessed: Physical therapy for increased mobility secondary to femur fracture Reason for physical therapy: therapeutic exercises, restore joint function and gait/transfer training Homebound: Leaving the home is medically contraindicated at this time without the asist of a device and/or another person due th the listed conditions above and below. Reason homebound: unsteady gait / fall risk and unable to drive Certification: Based on the above findings, I certify that this patient is confined to the home and needs intermittent retirement care, physical therapy and/or speech therapy, or continues to need occupational therapy. The patient is under my care, and I have initiated the establishment of the plan of care. The patient will be followed by a physician who will periodically review the plan of care. Time Spent With Patient Time: Total time managing care of this patient today ____ minutes.
--- NOTE | 2024-04-27 06:54 | W.PM.OPN ---
Operative Note Operative Note Date of Service: 04/22/24 Narrative: Date of Service: 04/22/24 Pre-op diagnosis: right femur fracture right patella fracture Post-op diagnosis: same Procedure: IMN right femur ORIF right patella Implants: Patrice: [id number] imn with 3 distal and 1 proxiomal interlocking screw 3.5 x 40 cortical lag screw Surgeon: Neel Perez MD Anesthesia: GLMA, regional and local Was an Crepe Laminator Operator used for this Procedure?: No Estimated blood loss (mL): 200 IV fluids (mL): 1,000 Pathology: none sent Condition: stable Disposition: PACU Procedure in detail: Patient was brought to the operating room and prepped and draped in standard sterile fashion. Time-out was called to identify proper site procedure proper surgeon and IV antibiotics per weight were administered. She was positioned supine on the fracture table. I began by making a midline incision from the middle of the patella to the tibial tubercle and created a full thickness skin flap exposing the patellar tendon. I made a longitudinal incision through the patellar tendon taking care to preserve the paratenon. A guide wire was then placed into the femoral notch and, using biplanar fluoro, was inserted up the femoral canal. This was a non displaced distal femoral fracture so a 10 mm nail was measured and inserted without reaming. I selected a 340 mm nail and then placed. Using the guide I placed three distal medial to lateral screws and, using perfect [place] techniqu, one proximal interlocking screw. Biplanar fluoro was used to confirm hardware position. I was satisfied with the position and I irrigated copiously. I then closed the patellar tendon with ) Vicryl, the paratenon with 3.0 Vicryl. I then turned my attention to the patellar fracture. This was a vertical fracture but extended to the articular surface. It was minimally displaced. Using the same incision and standard AO technique I counter sunk and inserted one cortical 3.5 lag screw screw perpendicular to the fracture line and extra-articular. I was satisfied with the stability and alignment and hardware position. I completed my closure of the subQ with 3.0 Vicryl and tpatient was placed in sterile dressing awakened from anesthesia brought to recovery room stable condition there were no known complications.
== END 2024-04-25 14:19 | disposition home health service (06) | DRG 481 ==
LOC: HO.ED 16:09 → HO.EDOVER 16:27 → HO.SSSA 04-22 13:32 → HO.S3 04-22 16:10
PROVIDERS: Orthopaedic Surgery; Physician Assistant Medical; Admitting Provider Student in an Organized Health Care Education/Training Program; Emergency Provider Emergency Medicine; PCP Internal Medicine; Visit Provider Hospitalist
PROC: 0QHB04Z Insertion of Internal Fixation Device into Right Lower Femur, Open Approach (ICD-10-PCS; principal; 2024-04-22 14:00)
DX: S82.091A Other fracture of right patella, initial encounter for closed fracture (principal); S72.491A Other fracture of lower end of right femur, initial encounter for closed fracture; G89.18 Other acute postprocedural pain; W01.0XXA Fall on same level from slipping, tripping and stumbling without subsequent striking against object, initial encounter; Y92.59 Other trade areas as the place of occurrence of the external cause; K21.9 Gastro-esophageal reflux disease without esophagitis; E78.2 Mixed hyperlipidemia; G47.00 Insomnia, unspecified; Z79.899 Other long term (current) drug therapy
CPT/HCPCS: 36415; 70450; 72125; 73562; 73700; 80048; 80053; 85025; 85610; 85730; 97116; 97162; 99285; C1713; C1758; J0131; J0665; J0690; J0737; J1100; J1650; J2270; J2405; J2704; J2795; J3010

== ENCOUNTER → 2024-04-21 16:08 | Outpatient (BNV) | payer MEDICARE, SELFPAY | PROVIDERS: Admitting Provider Student in an Organized Health Care Education/Training Program; Emergency Provider Emergency Medicine; Visit Provider Student in an Organized Health Care Education/Training Program | DX: S72.401A Unspecified fracture of lower end of right femur, initial encounter for closed fracture (principal); S82.091A Other fracture of right patella, initial encounter for closed fracture | CPT/HCPCS: 99222; 99232; 99239; G0180 ==

== ENCOUNTER → 2024-04-21 16:08 | Outpatient (BNV) | payer MEDICARE, SELFPAY | PROVIDERS: Admitting Provider Student in an Organized Health Care Education/Training Program; Emergency Provider Emergency Medicine; Visit Provider Orthopaedic Surgery | DX: S72.401A Unspecified fracture of lower end of right femur, initial encounter for closed fracture (principal); S82.091A Other fracture of right patella, initial encounter for closed fracture | CPT/HCPCS: 27514; 27524; 99024; 99222 ==

== ENCOUNTER 2024-05-09 09:34 | Outpatient (REF) | payer MEDICARE, SELFPAY ==
--- NOTE | ~2024-05-09 | XR_ITS ---
EXAMINATION: XR FEMUR, RIGHT CLINICAL INFORMATION: Displaced intertrochanteric fracture of the right femur. COMPARISON: CT dated 04/21/2024 TECHNIQUE: AP and lateral views of the right femur were obtained. FINDINGS: There is a retrograde intramedullary nail which appears appropriately positioned with one cephalad and 3 distal interlocking screws. The distal femoral metadiaphyseal fracture is in anatomic alignment. The intercondylar split component of the fracture line is not well seen. There is a transversely oriented threaded screw through the patella. The patellar fracture is not well-seen, consistent with anatomic reduction. Small right knee effusion. Numerous surgical yaritza are present around the right knee and right thigh. 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 XR/XR femur RT 2V IMPRESSION: 1. Anatomic alignment of the distal femoral fracture status post ORIF. 2. Anatomic alignment of the patellar fracture status post ORIF.
== END 2024-05-09 09:35 | disposition home or self-care (01) ==
LOC: HO.HOSX 09:34
PROVIDERS: Visit Provider Physician Assistant
DX: S82.091D Other fracture of right patella, subsequent encounter for closed fracture with routine healing (principal); S72.401D Unspecified fracture of lower end of right femur, subsequent encounter for closed fracture with routine healing
CPT/HCPCS: 73552; 99212

== ENCOUNTER 2024-05-09 09:53 | Outpatient (AMB) | payer MEDICARE, SELFPAY ==
--- NOTE | 2024-05-09 09:59 | MHC.OFFVIS ---
Intake Visit Reasons: PO 2WK s/p IMN RT femur ORIF, RT patella 04/22/24 Intake Note: Mai a 73 year old female who presents today for a post operative right femur IMN, right patella ORIF on 04/22/24 NE. Patient reports she is doing well, states her pain has been tolerable. Finds relief with aspirin as needed. Allergies No Known Allergies Allergy (Verified 05/09/24 10:03) Medication List - Last Reconciled 05/09/24 by Babar Garcia PA-C omeprazole 20 mg PO BID oxycodone 10 mg PO Q6H PRN simvastatin 20 mg PO BEDTIME zolpidem 5 mg PO BEDTIME PRN HPI HPI PO 2WK s/p IMN RT femur ORIF, RT patella 04/22/24: Details: Mai is a 73-year-old female who presents today for a postoperative visit of status post IMN right femur ORIF, RT patella 04/22/2024. She states that overall she is doing well. She claims that that pain she is experiencing is bearable. She states that still finds it difficult to bend her knee. She finds relief with aspirin as needed. [facility] Medical History Insomnia Mixed hyperlipidemia Gastroesophageal reflux disease Social History Household Members: None Housing: House Do you presently have visiting nurse or other home services: No Patient Tobacco Use Status: Never used Tobacco Advance Directives Date on File: 04/22/24 service: No Review of Systems Const All systems reviewed & are unremarkable except as noted in HPI and below Physical Exam Const General: cooperative, healthy appearing, comfortable and no acute distress Orientation/consciousness: patient oriented x3 Neck Neck: Yes normal visual inspection and Yes no JVD Chest Chest palpation & inspection: normal inspection of the chest Resp Effort & Inspection: normal respiratory effort Auscultation: clear to auscultation bilaterally, crackles (no), rales (no), rhonchi (no) and wheezes (no) Cardio Jugular venous distension: no JVD Rate: regular rate Rhythm: regular rhythm Heart sounds: S1 normal heart sound present, S2 normal heart sound present, Murmur heart sound present (no) and Rub heart sound present (no) Neuro General: patient oriented x3 Extrem Other: Right knee: Incision is clean, dry and intact. No erythema, no drainage. She can activate her quad and range of motion is limited to 20 degrees of flexion. Calf supple and nontender. NVI. General: Yes normal to inspection, Yes no pedal edema and Yes no calf tenderness Psych Appearance: grossly normal Mental Status: mental status grossly normal Speech and movement: Normal speech and movement present Results Reviewed Results Reviewed: Xrays were obtained in the office today and personally reviewed by me of the right patella and femur show intact hardware and stable fracture pattern Assessment & Plan Assessment & Plan (1) Femur fracture: Code(s): S72.90XA - Unspecified fracture of unspecified femur, initial encounter for closed fracture Category: Medical Qualifiers: Encounter type: initial encounter Femur location: distal, unspecified portion Fracture morphology: unspecified fracture morphology Fracture type: closed Laterality: right Qualified Code(s): S72.401A - Unspecified fracture of lower end of right femur, initial encounter for closed fracture (2) Fracture, patella: Code(s): S82.009A - Unspecified fracture of unspecified patella, initial encounter for closed fracture Category: Medical Qualifiers: Encounter type: initial encounter Fracture morphology: other fracture Fracture type: closed Laterality: right Qualified Code(s): S82.091A - Other fracture of right patella, initial encounter for closed fracture Plan She will begin outpatient physical therapy for gentle range of motion. Weight bearing as tolerated, quad strength, and gait training. She can increase the activities as tolerated using caution over the next 6 weeks to avoid impact activities and she will see us back in 4 weeks with x-rays or sooner if needed. Orders: Orders XR femur RT 2V Today S72.142A - Displaced intertrochanteric fracture of left femur, initial encounter for closed fracture PT Evaluation and Treatment Today S72.401A - Unspecified fracture of lower end of right femur, initial encounter for closed fracture, S82.091A - Other fracture of right patella, initial encounter for closed fracture Patient Instructions: Scribed for Babar Garcia PA-C, by Yris Phan outside medical sales representative, on 05/09/2024 at 10:00 AM EST. IBabar PA-C, have personally reviewed and agree with the information entered by the scribe. Coding Level of Care Code Global (16584) Diagnoses Closed fracture of distal end of right femur, unspecified fracture morphology, initial encounter S72.401A Encounter type: initial encounter Femur location: distal, unspecified portion Fracture morphology: unspecified fracture morphology Fracture type: closed Laterality: right Other closed fracture of right patella, initial encounter S82.091A Encounter type: initial encounter Fracture morphology: other fracture Fracture type: closed Laterality: right
== END 2024-05-09 10:58 | disposition home or self-care (01) ==
PROVIDERS: Visit Provider Physician Assistant
DX: S72.401A Unspecified fracture of lower end of right femur, initial encounter for closed fracture (principal); S82.091A Other fracture of right patella, initial encounter for closed fracture
CPT/HCPCS: 99024

== ENCOUNTER 2024-06-06 10:18 | Outpatient (AMB) | payer MEDICARE, SELFPAY ==
--- NOTE | 2024-06-06 10:19 | A.OFFVIS_ITS ---
Vital Signs 06/06/24 10:27 Height 5 ft 6 in Weight 139 lb BMI 22.4 Intake Visit Reasons: PO s/p IMN RT femur ORIF, RT patella 04/22/24 Intake Note: Mai a 73 year old female who presents today for a post operative right femur IMN, right patella ORIF on 04/22/24 NE. Patient reposrts that she is doing well, she does experiencing pain after PT , she has been taking aspirin for barraza. Allergies No Known Allergies Allergy (Verified 06/06/24 10:28) HPI HPI PO s/p IMN RT femur ORIF, RT patella 04/22/24: Details: Mai a 73 year old female who presents today for a post operative right femur IMN, right patella ORIF on 04/22/24 NE. Patient reports that she is doing well, she does experiencing pain after PT , she has been taking aspirin for barraza. [facility] Medical History (Updated 06/06/24 @ 10:38 by Neel Perez MD) Fracture, patella Femur fracture Insomnia Mixed hyperlipidemia Gastroesophageal reflux disease Social History Household Members: None Housing: House Do you presently have visiting nurse or other home services: No Patient Tobacco Use Status: Never used Tobacco Advance Directives Date on File: 04/22/24 service: No Physical Exam Vital Signs: BMI result Body Mass Index 22.4 Extrem Other: Well-healed incisions. 0290 degrees range of motion of right knee. Walking comfortably with a walker Assessment & Plan Assessment & Plan (1) Femur fracture: Code(s): S72.90XA - Unspecified fracture of unspecified femur, initial encounter for closed fracture Category: Medical Qualifiers: Encounter type: initial encounter Femur location: distal, unspecified portion Fracture morphology: unspecified fracture morphology Fracture type: closed Laterality: right Qualified Code(s): S72.401A - Unspecified fracture of lower end of right femur, initial encounter for closed fracture Plan: Continue physical therapy and weight-bearing as tolerated. (2) Fracture, patella: Code(s): S82.009A - Unspecified fracture of unspecified patella, initial encounter for closed fracture Category: Medical Qualifiers: Encounter type: initial encounter Fracture morphology: other fracture Fracture type: closed Laterality: right Qualified Code(s): S82.091A - Other fracture of right patella, initial encounter for closed fracture Plan: Continue physical therapy and weight-bearing as tolerated. Follow up 6 weeks with radiographs. Orders: Orders PT Evaluation and Treatment 06/06/24 S72.401A - Unspecified fracture of lower end of right femur, initial encounter for closed fracture, S82.091A - Other fracture of right patella, initial encounter for closed fracture Coding Level of Care Code Global (41822) Diagnoses Closed fracture of distal end of right femur, unspecified fracture morphology, initial encounter S72.401A Encounter type: initial encounter Femur location: distal, unspecified portion Fracture morphology: unspecified fracture morphology Fracture type: closed Laterality: right Other closed fracture of right patella, initial encounter S82.091A Encounter type: initial encounter Fracture morphology: other fracture Fracture type: closed Laterality: right
[2024-06-06 10:27] VITALS: BMI 22.4
== END 2024-06-06 10:46 | disposition home or self-care (01) ==
PROVIDERS: PCP Internal Medicine; Visit Provider Orthopaedic Surgery
DX: S72.401A Unspecified fracture of lower end of right femur, initial encounter for closed fracture (principal); S82.091A Other fracture of right patella, initial encounter for closed fracture
CPT/HCPCS: 99024

== ENCOUNTER → 2024-06-06 10:18 | Outpatient (BNVA) | payer MEDICARE, SELFPAY | PROVIDERS: PCP Internal Medicine; Visit Provider Orthopaedic Surgery | DX: S72.401D Unspecified fracture of lower end of right femur, subsequent encounter for closed fracture with routine healing (principal); S82.091D Other fracture of right patella, subsequent encounter for closed fracture with routine healing | CPT/HCPCS: 99212 ==

== ENCOUNTER 2024-07-18 10:09 | Outpatient (AMB) | payer MEDICARE, SELFPAY ==
[2024-07-18 10:11] VITALS: BMI 22.4
--- NOTE | 2024-07-18 10:11 | A.OFFVIS_ITS ---
Vital Signs 07/18/24 10:11 Height 5 ft 6 in Weight 139 lb BMI 22.4 Intake Visit Reasons: PO s/p IMN RT femur ORIF, RT patella 04/22/24 Intake Note: Mai a 73 year old female who presents today for a post operative right femur IMN, right patella ORIF on 04/22/24 NE. Patient reports that she is doing well with no pain and no concerns. Allergies No Known Allergies Allergy (Verified 07/18/24 10:12) HPI HPI PO s/p IMN RT femur ORIF, RT patella 04/22/24: Details: Mai a 73 year old female who presents today for a post operative right femur IMN, right patella ORIF on 04/22/24 NE. Patient reports that she is doing well with no pain and no concerns. [facility] Medical History (Updated 06/06/24 @ 10:38 by Neel Perez MD) Fracture, patella Femur fracture Insomnia Mixed hyperlipidemia Gastroesophageal reflux disease Social History Household Members: None Housing: House Do you presently have visiting nurse or other home services: No Patient Tobacco Use Status: Never used Tobacco Advance Directives Date on File: 04/22/24 service: No Physical Exam Vital Signs: BMI result Body Mass Index 22.4 Extrem Other: 0-95 degrees of motion. No effusion No pain Assessment & Plan Assessment & Plan (1) Fracture, patella: Code(s): S82.009A - Unspecified fracture of unspecified patella, initial encounter for closed fracture Category: Medical Qualifiers: Encounter type: initial encounter Fracture morphology: other fracture Fracture type: closed Laterality: right Qualified Code(s): S82.091A - Other fracture of right patella, initial encounter for closed fracture Plan: Doing well continue range of motion activities and strengthening. May walk without the knee brace. (2) Femur fracture: Code(s): S72.90XA - Unspecified fracture of unspecified femur, initial encounter for closed fracture Category: Medical Qualifiers: Encounter type: initial encounter Femur location: distal, unspecified portion Fracture morphology: unspecified fracture morphology Fracture type: closed Laterality: right Qualified Code(s): S72.401A - Unspecified fracture of lower end of right femur, initial encounter for closed fracture Plan: Doing well continue weight-bearing as tolerated. May discontinue the brace. Follow up 2 months. Coding Level of Care Code Global (85453) Diagnoses Other closed fracture of right patella, initial encounter S82.091A Encounter type: initial encounter Fracture morphology: other fracture Fracture type: closed Laterality: right Closed fracture of distal end of right femur, unspecified fracture morphology, initial encounter S72.401A Encounter type: initial encounter Femur location: distal, unspecified portion Fracture morphology: unspecified fracture morphology Fracture type: closed Laterality: right
== END 2024-07-18 10:33 | disposition home or self-care (01) ==
PROVIDERS: PCP Internal Medicine; Visit Provider Orthopaedic Surgery
DX: S82.091A Other fracture of right patella, initial encounter for closed fracture (principal); S72.401A Unspecified fracture of lower end of right femur, initial encounter for closed fracture
CPT/HCPCS: 99024

== ENCOUNTER → 2024-07-18 10:09 | Outpatient (BNVA) | payer MEDICARE, SELFPAY | PROVIDERS: PCP Internal Medicine; Visit Provider Orthopaedic Surgery | DX: S82.091A Other fracture of right patella, initial encounter for closed fracture (principal); S72.401A Unspecified fracture of lower end of right femur, initial encounter for closed fracture; X58.XXXA Exposure to other specified factors, initial encounter; Y93.9 Activity, unspecified; Y92.9 Unspecified place or not applicable; Y99.9 Unspecified external cause status | CPT/HCPCS: 99212 ==

== ENCOUNTER 2024-09-06 10:00 | Outpatient (RCR) | payer MEDICARE, SELFPAY ==
--- NOTE | 2024-05-24 08:58 | MHC.PT.EP ---
[facility] [place] Office [place] Office [place] Office [address] Memo Brown [address] [phone] F: [phone] F: [phone] F: [phone] F: [phone] Physical Therapy Plan of Care Date of Evaluation: 05/24/24 Date of Surgery: 04/22/2024 Diagnosis: s/p R patella ORIF, distal femur retrograde IMN 04/22 Assessment: Patient is a 73 year old female presenting to PT s/p R patella ORIF with distal femur retrograde IMN 04/22/2024. She presents today with impairments in pain, ROM, strength, gait mechanics, ortho limitations. Pt's current occupation is retired, with baseline physical activities including ambulating, stair negotiation, ADLs, yardwork. Pt expresses intermediate frame tender goal of returning to [facility], and is motivated to work towards this in PT. Clinical presentation today is most consistent with signs and sx associated with s/p R patella ORIF with distal femur retrograde IMN 04/22/2024 and pt will benefit from skilled PT 2 x week x 8 weeks to address the following problems and impairments noted upon evaluation: pain, ROM, strength, gait mechanics, ortho limitations. These problems limit the patient with the following functional activities: ambulating, stair negotiation, ADLs, yardwork. The prescribed treatment plan of care is medically necessary. Co-morbidities of none were identified and taken into considerations of plan of care. Pt was educated on HEP, role of PT, prognosis, POC. Frequency and Duration: The patient will be seen 2 x week x 8 weeks Short Term Goals: Pt will demonstrate equal ROM in 4 weeks. Pt will demonstrate hip MMT strength 4/5 in 4 weeks for improved lumbopelvic stability. Pt will demonstrate knee MMT strength 3/5 in 4 weeks pending MD clearance to initiate. [facility] Goals: Pt will demonstrate improved LEFI score by 9 points in 8 weeks for improved functional mobility. Pt will demonstrate ability to ambulate with least restrictive device in 8 weeks for improved access to the community. Pt will demonstrate ability to negotiate stairs with min to no pain in 8 weeks pending MD clearance for improved access to her home. Treatment Plan: Modalities to reduce pain, spasms and effusion. Manual therapy to restore motion and function. Therapeutic exercise to improve strength and flexibility. Neuromuscular re-education for posture and balance. Therapeutic activities to return to functional activities of daily living. Electronically signed by: Deepti Akbar, PT, DPT, ATC Please sign and return to therapist. Thank you for your referral.
--- NOTE | 2024-09-06 10:49 | MHC.PT.DC ---
[facility] [place] Office [place] Office [place] Office [address] Memo Brown [address] [phone] F: [phone] F: [phone] F: [phone] F: [phone] Physical Therapy Discharge Report Diagnosis: s/p R patella ORIF, distal femur retrograde IMN 04/22 Date of Surgery: 04/22/2024 Date of Evaluation: 05/24/24 Date of Discharge: 09/06/24 Treatments to Date: 31 Cancellations to Date: 0 No Shows to Date: 0 Discharge Status: Achieved Goals Improved Function Independent with HEP Discharge Summary: 09/06/2024: Pt has made good progress since start of care. She is demonstrating improved function overall. She is still lacking some end range knee flexion ROM but this does not appear to be limiting her functionally. Question if this is her new baseline. She is independent and compliant with her HEP and knows to continue with this at home. At this time max benefits of PT have been provided and skilled PT is no longer indicated. Encouraged her to continue following up with the surgeon. Electronically signed by: Deepti Akbar, PT, DPT, ATC Please sign and return to therapist. Thank you for your referral.
== END 2024-09-06 10:49 | disposition home or self-care (01) ==
LOC: HO.PTCHIC 10:00
PROVIDERS: PCP Internal Medicine; Visit Provider Physician Assistant
DX: S72.401D Unspecified fracture of lower end of right femur, subsequent encounter for closed fracture with routine healing (principal); S82.091D Other fracture of right patella, subsequent encounter for closed fracture with routine healing
CPT/HCPCS: 97110; 97112; 97161; 97530

== ENCOUNTER 2024-09-12 10:02 | Outpatient (REF) | payer MEDICARE, SELFPAY | END 2024-09-12 10:03 | disposition home or self-care (01) | LOC: HO.HOSX 10:02 | PROVIDERS: PCP Internal Medicine; Visit Provider Orthopaedic Surgery | DX: M25.561 Pain in right knee (principal); S72.401A Unspecified fracture of lower end of right femur, initial encounter for closed fracture; S82.091A Other fracture of right patella, initial encounter for closed fracture | CPT/HCPCS: 73552; 73562; 99212 ==

== ENCOUNTER 2024-09-12 10:02 | Outpatient (AMB) | payer MEDICARE, SELFPAY ==
--- NOTE | 2024-09-12 10:11 | MHC.OFFVIS ---
Intake Visit Reasons: PO s/p IMN RT femur ORIF, RT patella 04/22/24 Intake Note: Mai a 73 year old female who presents today for a post operative right femur IMN, right patella ORIF on 04/22/24 NE. Patient reports that odilia is doing well. Allergies No Known Allergies Allergy (Verified 07/18/24 10:12) HPI HPI PO s/p IMN RT femur ORIF, RT patella 04/22/24: Details: Mai a 73 year old female who presents today for a post operative right femur IMN, right patella ORIF on 04/22/24 NE. [facility] Medical History Fracture, patella Femur fracture Insomnia Mixed hyperlipidemia Gastroesophageal reflux disease Social History Household Members: None Housing: House Do you presently have visiting nurse or other home services: No Patient Tobacco Use Status: Never used Tobacco Advance Directives Date on File: 04/22/24 service: No Physical Exam Extrem Other: Full painless range of motion right knee. Well-healed portals. Normal gait. Results Reviewed Results Reviewed: Radiographs demonstrate maintained alignment with healed fractures. No hardware complications of the patella or distal femur. Assessment & Plan Assessment & Plan (1) Femur fracture: Code(s): S72.90XA - Unspecified fracture of unspecified femur, initial encounter for closed fracture Category: Medical Qualifiers: Encounter type: initial encounter Femur location: distal, unspecified portion Fracture morphology: unspecified fracture morphology Fracture type: closed Laterality: right Qualified Code(s): S72.401A - Unspecified fracture of lower end of right femur, initial encounter for closed fracture Plan: Continue activity as tolerated. No restrictions. Follow up as needed. (2) Fracture, patella: Code(s): S82.009A - Unspecified fracture of unspecified patella, initial encounter for closed fracture Category: Medical Qualifiers: Encounter type: initial encounter Fracture morphology: other fracture Fracture type: closed Laterality: right Qualified Code(s): S82.091A - Other fracture of right patella, initial encounter for closed fracture Plan: Follow up as needed. Doing well. Orders: Orders XR knee RT 3V Today M25.561 - Pain in right knee XR femur RT 2V Today S72.401A - Unspecified fracture of lower end of right femur, initial encounter for closed fracture Coding Level of Care Code Est Pt Level 3 (64709) Diagnoses Closed fracture of distal end of right femur, unspecified fracture morphology, initial encounter S72.401A Encounter type: initial encounter Femur location: distal, unspecified portion Fracture morphology: unspecified fracture morphology Fracture type: closed Laterality: right Other closed fracture of right patella, initial encounter S82.091A Encounter type: initial encounter Fracture morphology: other fracture Fracture type: closed Laterality: right
== END 2024-09-12 10:26 | disposition home or self-care (01) ==
PROVIDERS: PCP Internal Medicine; Visit Provider Orthopaedic Surgery
DX: S72.401A Unspecified fracture of lower end of right femur, initial encounter for closed fracture (principal); S82.091A Other fracture of right patella, initial encounter for closed fracture
CPT/HCPCS: 99213